=== PATIENT | male | born 1945 | race Caucasian/White ===

== ENCOUNTER 2018-03-17 16:57 | Inpatient (IN) | payer MEDICARE, OTHER ==
[2018-03-17] MEDS: SOD CHLORIDE 0.9% 500 ML IV (17:39)
[2018-03-17 17:45] LABS: ADD MAN DIFF? NO
[2018-03-17 17:46] LABS: ABNORMAL IP MESSAGE 1; BASOPHIL # 0.1 10^3/ul (0.0-0.1); BASOPHILS % 0.6 % (0.0-2.0); EOSINOPHILS # 0.7 10^3/ul (0.0-0.5); EOSINOPHILS % 9.2 % (0.0-7.0); HEMATOCRIT 29.6 % (42.0-52.0); HEMOGLOBIN 9.1 g/dl (14.0-18.0); LYMPHOCYTES # 1.1 10^3/ul (0.8-2.9); LYMPHOCYTES % 13.4 % (15.0-51.0); MEAN CORPUSCULAR HGB CONC 30.7 g/dl (32.0-37.0); MEAN CORPUSCULAR VOLUME 91.1 fl (82.0-101.0); MEAN PLATELET VOLUME 13.5 fl (7.4-10.4); MONOCYTE # 0.6 10^3/ul (0.3-0.9); MONOCYTES % 7.8 % (0.0-11.0); NEUTROPHIL # 5.5 10^3/ul (1.6-7.5); NEUTROPHILS % 68.5 % (39.0-77.0); PLATELET COUNT 223 10^3/UL (140-415); POSITIVE DIFF @See below; RED BLOOD COUNT 3.25 10^6/ul (4.70-6.10); RED CELL DISTRIBUTION WIDTH 16.1 % (11.5-14.5)
[2018-03-17 18:09] LABS: ALANINE AMINOTRANSFERASE 19 IU/L (13-69); ALBUMIN 3.5 g/dl (3.3-4.9); ALBUMIN/GLOBULIN RATIO 0.97; ALKALINE PHOSPHATASE 118 IU/L (42-121); ANION GAP 15 (8-16); ASPARTATE AMINO TRANSFERASE 9 IU/L (15-46); BILIRUBIN,INDIRECT 0.1 mg/dl (0-1.1); BILIRUBIN,TOTAL 0.1 mg/dl (0.2-1.3); BLOOD UREA NITROGEN 32 mg/dl (7-20); CALCIUM 10.4 mg/dl (8.4-10.2); CARBON DIOXIDE 30 mmol/L (21-31); CHLORIDE 116 mmol/L (97-110); CREATININE 0.69 mg/dl (0.61-1.24); GLUCOSE 107 mg/dl (70-220); POTASSIUM 3.2 mmol/L (3.5-5.1); SODIUM 158 mmol/L (135-144); TOTAL PROTEIN 7.1 g/dl (6.1-8.1)
[2018-03-17] MEDS ORDERED: ONDANSETRON 4 MG INJ IV (21:30)
[2018-03-17] MEDS ORDERED: ACETAMINOPHEN 325 MG TAB PO (21:30)
[2018-03-17] MEDS: SOD CHLORIDE 0.9% 1,000 ML IV (22:14)
[2018-03-17] MEDS: POTASSIUM CHLORIDE 30 MEQ in DEXTROSE 5% 1,000 ML IV (22:49)
[2018-03-17] MEDS: CLONIDINE 0.2 MG/24 HR PATCH TRANSDERM (22:59)
[2018-03-17] MEDS: HYDROCODONE/APAP (5/325) TAB GTB (23:02)
[2018-03-18] MEDS: HYDROCODONE/APAP (5/325) TAB GTB ×4 (04:03→21:57)
[2018-03-18 07:20] LABS: ADD MAN DIFF? NO
[2018-03-18 07:25] LABS: WHITE BLOOD COUNT 7.3 10^3/ul (4.8-10.8)
[2018-03-18 07:25] LABS: ABNORMAL IP MESSAGE 1; BASOPHIL # 0.1 10^3/ul (0.0-0.1); EOSINOPHILS # 0.6 10^3/ul (0.0-0.5); EOSINOPHILS % 8.1 % (0.0-7.0); HEMATOCRIT 28.5 % (42.0-52.0); HEMOGLOBIN 8.6 g/dl (14.0-18.0); LYMPHOCYTES # 0.8 10^3/ul (0.8-2.9); LYMPHOCYTES % 11.2 % (15.0-51.0); MEAN CORPUSCULAR HEMOGLOBIN 27.4 pg (29.0-33.0); MEAN CORPUSCULAR HGB CONC 30.2 g/dl (32.0-37.0); MEAN CORPUSCULAR VOLUME 90.8 fl (82.0-101.0); MEAN PLATELET VOLUME 13.9 fl (7.4-10.4); MONOCYTE # 0.6 10^3/ul (0.3-0.9); MONOCYTES % 7.5 % (0.0-11.0); NEUTROPHIL # 5.2 10^3/ul (1.6-7.5); NEUTROPHILS % 71.7 % (39.0-77.0); PLATELET COUNT 212 10^3/UL (140-415); POSITIVE DIFF @See below; RED BLOOD COUNT 3.14 10^6/ul (4.70-6.10); RED CELL DISTRIBUTION WIDTH 16.1 % (11.5-14.5)
[2018-03-18 07:59] LABS: ANION GAP 14 (8-16); BLOOD UREA NITROGEN 24 mg/dl (7-20); CALCIUM 9.9 mg/dl (8.4-10.2); CARBON DIOXIDE 28 mmol/L (21-31); CHLORIDE 117 mmol/L (97-110); CREATININE 0.57 mg/dl (0.61-1.24); GLUCOSE 126 mg/dl (70-220); SODIUM 156 mmol/L (135-144)
[2018-03-18 08:05] LABS: POTASSIUM 2.9 mmol/L (3.5-5.1)
[2018-03-18] MEDS: FERROUS SULFATE 60 MG/ML 5ML CUP GTB ×2 (08:13→21:55)
[2018-03-18] MEDS: AMLODIPINE 10 MG TAB PEG (08:14)
[2018-03-18] MEDS: BISACODYL 10 MG SUPP PR (08:14)
[2018-03-18] MEDS: TACROLIMUS 1 MG CAP PEG ×2 (08:14→21:55)
[2018-03-18] MEDS: POTASSIUM CHLORIDE (SR) 20 MEQ TAB PO (08:14)
[2018-03-18] MEDS: SOD PHOS MONO/DIBAS 250 MG TAB PEG ×2 (08:14→21:55)
[2018-03-18] MEDS: predniSONE 2.5 MG TAB PEG (08:14)
[2018-03-18] MEDS: MAGNESIUM OXIDE 400 MG TAB GTB ×2 (08:14→21:56)
[2018-03-18] MEDS ORDERED: MYCOPHENOLATE MOFETIL GTB (09:00)
[2018-03-18] MEDS ORDERED: LEVETIRACETAM (100 MG/ML PO SYG) PEG (09:00)
[2018-03-18] MEDS: MYCOPHENOLATE 250 MG CAP PO ×2 (09:28→21:55)
[2018-03-18] MEDS: POTASSIUM CHLORIDE 20 MEQ POWDER FOR ORAL SOLN GTB (09:28)
[2018-03-18] MEDS: hydrALAzine 20 MG INJ IV (09:51)
[2018-03-18 10:31] LABS: OSMOLALITY 310 mOsm/kg (280-295)
[2018-03-18] MEDS: LEVETIRACETAM (100 MG/ML) 5ML CUP PEG ×2 (10:59→21:55)
[2018-03-18 12:55] LABS: SODIUM 153 mmol/L (135-144)
[2018-03-18 12:58] LABS: ANION GAP 15 (8-16); BLOOD UREA NITROGEN 19 mg/dl (7-20); CARBON DIOXIDE 26 mmol/L (21-31); CHLORIDE 116 mmol/L (97-110); CREATININE 0.57 mg/dl (0.61-1.24); GLUCOSE 136 mg/dl (70-220); POTASSIUM 3.5 mmol/L (3.5-5.1)
[2018-03-18] MEDS: POTASSIUM CHLORIDE 30 MEQ in DEXTROSE 5% 1,000 ML IV (14:33)
[2018-03-18 15:14] LABS: ADD UMIC YES; UR AMORPHOUS CRYSTAL MANY /HPF (NONE SEEN); UR ASCORBIC ACID 20 mg/dL (NEGATIVE); UR BILIRUBIN (Dip) NEGATIVE (NEGATIVE); UR BLOOD (Dip) NEGATIVE (NEGATIVE); UR BUDDING YEAST MANY /HPF (NONE SEEN); UR CLARITY CLOUDY (CLEAR); UR COLOR YELLOW (YELLOW); UR GLUCOSE (Dip) NEGATIVE (NEGATIVE); UR KETONES (Dip) NEGATIVE (NEGATIVE); UR LEUKOCYTE ESTERASE (Dip) NEGATIVE Leu/ul (NEGATIVE); UR NITRITE (Dip) NEGATIVE (NEGATIVE); UR RBC 1 /HPF (0-5); UR SPECIFIC GRAVITY (Dip) 1.011 (1.003-1.030); UR TOTAL PROTEIN (Dip) NEGATIVE (NEGATIVE); UR UROBILINOGEN (Dip) NEGATIVE (NEGATIVE); UR WBC 0 /HPF (0-5)
[2018-03-18 15:29] LABS: OSMOLALITY,URINE 429 mOsm/kg (250-1200)
[2018-03-18 15:33] LABS: SODIUM,URINE RANDOM 114 mmol/L (30-90)
[2018-03-18 15:33] LABS: CREATININE,URINE RANDOM 24.36 mg/dl (20-370)
[2018-03-18] MEDS ORDERED: LEVETIRACETAM (100 MG/ML) 5ML CUP PEG (21:00)
[2018-03-19] MEDS: POTASSIUM CHLORIDE 30 MEQ in DEXTROSE 5% 1,000 ML IV ×2 (00:32→11:52)
[2018-03-19] MEDS: hydrALAzine 20 MG INJ IV ×3 (00:35→17:23)
[2018-03-19] MEDS: HYDROCODONE/APAP (5/325) TAB GTB ×5 (02:30→21:48)
[2018-03-19] MEDS: ACETAMINOPHEN 650MG/20.3ML CUP GTB ×2 (02:31→17:23)
[2018-03-19 07:44] LABS: ABNORMAL IP MESSAGE 1; HEMATOCRIT 29.4 % (42.0-52.0); HEMOGLOBIN 8.7 g/dl (14.0-18.0); MEAN CORPUSCULAR HEMOGLOBIN 27.4 pg (29.0-33.0); MEAN CORPUSCULAR HGB CONC 29.6 g/dl (32.0-37.0); MEAN CORPUSCULAR VOLUME 92.5 fl (82.0-101.0); POSITIVE DIFF @See below; RED BLOOD COUNT 3.18 10^6/ul (4.70-6.10); RED CELL DISTRIBUTION WIDTH 16.2 % (11.5-14.5)
[2018-03-19 07:44] LABS: WHITE BLOOD COUNT 7.9 10^3/ul (4.8-10.8)
[2018-03-19 07:56] LABS: ADD MAN DIFF? YES; PLATELET COUNT 97 10^3/UL (140-415)
[2018-03-19 08:11] LABS: ANION GAP 12 (8-16); BLOOD UREA NITROGEN 18 mg/dl (7-20); CARBON DIOXIDE 26 mmol/L (21-31); CHLORIDE 116 mmol/L (97-110); CREATININE 0.54 mg/dl (0.61-1.24); GLUCOSE 108 mg/dl (70-220); MAGNESIUM 2.1 mg/dl (1.7-2.5); PHOSPHORUS 2.6 mg/dl (2.5-4.9); POTASSIUM 3.9 mmol/L (3.5-5.1); SODIUM 150 mmol/L (135-144)
[2018-03-19] MEDS: BISACODYL 10 MG SUPP PR (08:28)
[2018-03-19] MEDS: FERROUS SULFATE 60 MG/ML 5ML CUP GTB ×2 (08:28→20:31)
[2018-03-19] MEDS: LEVETIRACETAM (100 MG/ML) 5ML CUP PEG ×2 (08:28→20:31)
[2018-03-19] MEDS: TACROLIMUS 1 MG CAP PEG ×2 (08:28→20:32)
[2018-03-19] MEDS: MYCOPHENOLATE 250 MG CAP PO ×2 (08:28→20:32)
[2018-03-19] MEDS: predniSONE 2.5 MG TAB PEG (08:28)
[2018-03-19] MEDS: AMLODIPINE 10 MG TAB PEG (08:29)
[2018-03-19] MEDS: MAGNESIUM OXIDE 400 MG TAB GTB ×2 (08:29→20:31)
[2018-03-19] MEDS: POTASSIUM CHLORIDE (SR) 20 MEQ TAB PO (08:29)
[2018-03-19] MEDS: SOD PHOS MONO/DIBAS 250 MG TAB PEG ×2 (08:29→20:32)
[2018-03-19 10:11] LABS: ANISOCYTOSIS 1+ (0-0); BAND NEUTROPHILS #M 0.7 10^3/ul (0.0-0.6); BAND NEUTROPHILS % (M) 9 % (0-4); BASOPHIL #M 0.1 10^3/ul (0.0-0.0); BASOPHILS % (M) 2 % (0-2); EOSINOPHILS % (M) 4 % (0-7); GIANT THROMBO% (M) 1 % (0-0); LYMPHOCYTES #M 1.1 10^3/ul (0.8-2.9); LYMPHOCYTES % (M) 14 % (15-51); MICROCYTOSIS 1+ (0-0); MONOCYTE #M 0.8 10^3/ul (0.3-0.9); MONOCYTES % (M) 11 % (0-11); PLATELET ESTIMATE DECREASED; POLYCHROMASIA 1+ (0-0); REACTIVE LYMPHOCYTES #M 0.1 10^3/ul (0.0-0.0); REACTIVE LYMPHOCYTES% (M) 2 % (0-0); SEG NEUT #M 4.6 10^3/ul (1.6-7.5); SEGMENTED NEUTROPHILS (M) % 58 % (39-77); SMUDGE%M 10 % (0-0)
[2018-03-19 15:47] LABS: CREATININE, RANDOM URINE 29 mg/dL (20-370); MICROALBUMIN 1.1 mg/dL; MICROALBUMIN/CREATININE RATIO 38 (<30)
[2018-03-20] MEDS: hydrALAzine 20 MG INJ IV (02:32)
[2018-03-20] MEDS: HYDROCODONE/APAP (5/325) TAB GTB ×4 (03:26→21:18)
[2018-03-20] MEDS: POTASSIUM CHLORIDE 30 MEQ in DEXTROSE 5% 1,000 ML IV ×2 (03:26→20:55)
[2018-03-20 08:58] LABS: ADD MAN DIFF? NO
[2018-03-20] MEDS: BISACODYL 10 MG SUPP PR (09:03)
[2018-03-20] MEDS: LEVETIRACETAM (100 MG/ML) 5ML CUP PEG ×2 (09:03→20:40)
[2018-03-20] MEDS: POTASSIUM CHLORIDE (SR) 20 MEQ TAB PO (09:03)
[2018-03-20] MEDS: FERROUS SULFATE 60 MG/ML 5ML CUP GTB ×2 (09:03→20:39)
[2018-03-20] MEDS: predniSONE 2.5 MG TAB PEG (09:04)
[2018-03-20] MEDS: AMLODIPINE 10 MG TAB PEG (09:05)
[2018-03-20] MEDS: MAGNESIUM OXIDE 400 MG TAB GTB ×2 (09:05→21:18)
[2018-03-20] MEDS: MYCOPHENOLATE 250 MG CAP PO ×2 (09:05→20:42)
[2018-03-20] MEDS: TACROLIMUS 1 MG CAP PEG ×2 (09:05→20:39)
[2018-03-20 09:06] LABS: ABNORMAL IP MESSAGE 1; BASOPHIL # 0.1 10^3/ul (0.0-0.1); BASOPHILS % 0.9 % (0.0-2.0); EOSINOPHILS # 0.6 10^3/ul (0.0-0.5); EOSINOPHILS % 9.2 % (0.0-7.0); HEMATOCRIT 28.8 % (42.0-52.0); HEMOGLOBIN 8.8 g/dl (14.0-18.0); LYMPHOCYTES # 1.1 10^3/ul (0.8-2.9); MEAN CORPUSCULAR HEMOGLOBIN 27.8 pg (29.0-33.0); MEAN CORPUSCULAR HGB CONC 30.6 g/dl (32.0-37.0); MEAN CORPUSCULAR VOLUME 91.1 fl (82.0-101.0); MEAN PLATELET VOLUME 13.1 fl (7.4-10.4); MONOCYTE # 0.5 10^3/ul (0.3-0.9); MONOCYTES % 7.5 % (0.0-11.0); NEUTROPHIL # 4.3 10^3/ul (1.6-7.5); NEUTROPHILS % 64.9 % (39.0-77.0); PLATELET COUNT 232 10^3/UL (140-415); POSITIVE DIFF @See below; RED BLOOD COUNT 3.16 10^6/ul (4.70-6.10); RED CELL DISTRIBUTION WIDTH 15.9 % (11.5-14.5)
[2018-03-20 09:06] LABS: WHITE BLOOD COUNT 6.7 10^3/ul (4.8-10.8)
[2018-03-20 09:27] LABS: ANION GAP 12 (8-16); BLOOD UREA NITROGEN 21 mg/dl (7-20); CALCIUM 10.1 mg/dl (8.4-10.2); CARBON DIOXIDE 26 mmol/L (21-31); CHLORIDE 112 mmol/L (97-110); CREATININE 0.63 mg/dl (0.61-1.24); GLUCOSE 125 mg/dl (70-220); MAGNESIUM 2.2 mg/dl (1.7-2.5); PHOSPHORUS 2.7 mg/dl (2.5-4.9); SODIUM 146 mmol/L (135-144)
[2018-03-20] MEDS: DESMOPRESSIN 0.1 MG TAB PO ×3 (10:59→20:40)
[2018-03-20] MEDS: SOD PHOS MONO/DIBAS 250 MG TAB PEG ×2 (10:59→20:42)
[2018-03-20] MEDS: EPOETIN 10000 UNITS/ML (NON ESRD/NON ONCOLOGY) SC (11:00)
[2018-03-21] MEDS: HYDROCODONE/APAP (5/325) TAB GTB ×4 (03:43→21:03)
[2018-03-21] MEDS: POTASSIUM CHLORIDE 30 MEQ in DEXTROSE 5% 1,000 ML IV (06:42)
[2018-03-21 07:02] LABS: ADD MAN DIFF? NO
[2018-03-21] MEDS: hydrALAzine 20 MG INJ IV ×2 (07:02→16:10)
[2018-03-21 07:08] LABS: WHITE BLOOD COUNT 7.2 10^3/ul (4.8-10.8)
[2018-03-21 07:08] LABS: BASOPHIL # 0.1 10^3/ul (0.0-0.1); BASOPHILS % 0.8 % (0.0-2.0); EOSINOPHILS # 0.6 10^3/ul (0.0-0.5); EOSINOPHILS % 7.9 % (0.0-7.0); HEMATOCRIT 29.6 % (42.0-52.0); LYMPHOCYTES % 13.4 % (15.0-51.0); MEAN CORPUSCULAR HEMOGLOBIN 27.4 pg (29.0-33.0); MEAN CORPUSCULAR HGB CONC 30.4 g/dl (32.0-37.0); MEAN PLATELET VOLUME 12.6 fl (7.4-10.4); MONOCYTE # 0.4 10^3/ul (0.3-0.9); MONOCYTES % 5.5 % (0.0-11.0); NEUTROPHIL # 5.2 10^3/ul (1.6-7.5); PLATELET COUNT 243 10^3/UL (140-415); RED BLOOD COUNT 3.29 10^6/ul (4.70-6.10); RED CELL DISTRIBUTION WIDTH 15.9 % (11.5-14.5)
[2018-03-21 07:23] LABS: ANION GAP 14 (8-16); BLOOD UREA NITROGEN 22 mg/dl (7-20); CALCIUM 10.2 mg/dl (8.4-10.2); CARBON DIOXIDE 27 mmol/L (21-31); CHLORIDE 107 mmol/L (97-110); CREATININE 0.61 mg/dl (0.61-1.24); GLUCOSE 111 mg/dl (70-220); PHOSPHORUS 2.8 mg/dl (2.5-4.9); POTASSIUM 4.2 mmol/L (3.5-5.1); SODIUM 144 mmol/L (135-144)
[2018-03-21 07:26] LABS: IRON 57 ug/dl (35-150)
[2018-03-21 07:35] LABS: % IRON SATURATION 31 % SAT (22-52); TOTAL IRON BINDING CAPACITY 181 ug/dl (241-421)
[2018-03-21] MEDS: DESMOPRESSIN 0.1 MG TAB PO ×3 (08:28→20:44)
[2018-03-21] MEDS: BISACODYL 10 MG SUPP PR (08:28)
[2018-03-21] MEDS: SOD PHOS MONO/DIBAS 250 MG TAB PEG ×2 (08:28→20:45)
[2018-03-21] MEDS: AMLODIPINE 10 MG TAB PEG (08:28)
[2018-03-21] MEDS: MYCOPHENOLATE 250 MG CAP PO ×2 (08:28→20:45)
[2018-03-21] MEDS: predniSONE 2.5 MG TAB PEG (08:29)
[2018-03-21] MEDS: LEVETIRACETAM (100 MG/ML) 5ML CUP PEG ×2 (08:29→20:44)
[2018-03-21] MEDS: FERROUS SULFATE 60 MG/ML 5ML CUP GTB ×2 (08:29→20:44)
[2018-03-21] MEDS: MAGNESIUM OXIDE 400 MG TAB GTB ×2 (08:29→20:44)
[2018-03-21] MEDS: TACROLIMUS 1 MG CAP PEG ×2 (08:29→20:44)
[2018-03-21] MEDS: POTASSIUM CHLORIDE (SR) 20 MEQ TAB PO (08:29)
[2018-03-22] MEDS: HYDROCODONE/APAP (5/325) TAB GTB ×4 (05:06→22:32)
[2018-03-22 06:40] LABS: ADD MAN DIFF? NO
[2018-03-22 06:42] LABS: WHITE BLOOD COUNT 11.6 10^3/ul (4.8-10.8)
[2018-03-22 06:42] LABS: ABNORMAL IP MESSAGE 1; BASOPHIL # 0.1 10^3/ul (0.0-0.1); BASOPHILS % 0.4 % (0.0-2.0); EOSINOPHILS # 0.4 10^3/ul (0.0-0.5); EOSINOPHILS % 3.4 % (0.0-7.0); HEMATOCRIT 25.8 % (42.0-52.0); HEMOGLOBIN 8.1 g/dl (14.0-18.0); LYMPHOCYTES # 0.9 10^3/ul (0.8-2.9); LYMPHOCYTES % 7.7 % (15.0-51.0); MEAN CORPUSCULAR HEMOGLOBIN 28.4 pg (29.0-33.0); MEAN CORPUSCULAR HGB CONC 31.4 g/dl (32.0-37.0); MEAN CORPUSCULAR VOLUME 90.5 fl (82.0-101.0); MEAN PLATELET VOLUME 13.2 fl (7.4-10.4); MONOCYTE # 0.4 10^3/ul (0.3-0.9); MONOCYTES % 3.8 % (0.0-11.0); NEUTROPHIL # 9.7 10^3/ul (1.6-7.5); NEUTROPHILS % 84.3 % (39.0-77.0); PLATELET COUNT 222 10^3/UL (140-415); POSITIVE DIFF @See below; RED BLOOD COUNT 2.85 10^6/ul (4.70-6.10); RED CELL DISTRIBUTION WIDTH 15.8 % (11.5-14.5)
[2018-03-22 07:01] LABS: ANION GAP 13 (8-16); BLOOD UREA NITROGEN 22 mg/dl (7-20); CALCIUM 9.9 mg/dl (8.4-10.2); CARBON DIOXIDE 27 mmol/L (21-31); CHLORIDE 108 mmol/L (97-110); CREATININE 0.67 mg/dl (0.61-1.24); GLUCOSE 112 mg/dl (70-220); POTASSIUM 3.8 mmol/L (3.5-5.1); SODIUM 144 mmol/L (135-144)
[2018-03-22] MEDS: BISACODYL 10 MG SUPP PR (09:00)
[2018-03-22] MEDS: MYCOPHENOLATE 250 MG CAP PO ×2 (09:02→22:31)
[2018-03-22] MEDS: FERROUS SULFATE 60 MG/ML 5ML CUP GTB ×2 (09:02→22:05)
[2018-03-22] MEDS: LEVETIRACETAM (100 MG/ML) 5ML CUP PEG ×2 (09:02→22:07)
[2018-03-22] MEDS: predniSONE 2.5 MG TAB PEG (09:04)
[2018-03-22] MEDS: POTASSIUM CHLORIDE (SR) 20 MEQ TAB PO (09:04)
[2018-03-22] MEDS: DESMOPRESSIN 0.1 MG TAB PO ×3 (09:04→22:06)
[2018-03-22] MEDS: SOD PHOS MONO/DIBAS 250 MG TAB PEG ×2 (09:04→22:06)
[2018-03-22] MEDS: TACROLIMUS 1 MG CAP PEG ×2 (09:05→22:06)
[2018-03-22] MEDS: AMLODIPINE 10 MG TAB PEG (09:05)
[2018-03-22] MEDS: MAGNESIUM OXIDE 400 MG TAB GTB ×2 (09:05→22:06)
[2018-03-23] MEDS: HYDROCODONE/APAP (5/325) TAB GTB ×3 (04:09→16:05)
[2018-03-23 08:53] LABS: ADD MAN DIFF? NO
[2018-03-23 08:55] LABS: WHITE BLOOD COUNT 8.6 10^3/ul (4.8-10.8)
[2018-03-23 08:55] LABS: BASOPHILS % 0.5 % (0.0-2.0); EOSINOPHILS # 0.5 10^3/ul (0.0-0.5); EOSINOPHILS % 5.8 % (0.0-7.0); HEMATOCRIT 27.3 % (42.0-52.0); HEMOGLOBIN 8.6 g/dl (14.0-18.0); LYMPHOCYTES # 1.1 10^3/ul (0.8-2.9); LYMPHOCYTES % 12.9 % (15.0-51.0); MEAN CORPUSCULAR HEMOGLOBIN 28.3 pg (29.0-33.0); MEAN CORPUSCULAR HGB CONC 31.5 g/dl (32.0-37.0); MEAN CORPUSCULAR VOLUME 89.8 fl (82.0-101.0); MEAN PLATELET VOLUME 12.2 fl (7.4-10.4); MONOCYTE # 0.6 10^3/ul (0.3-0.9); MONOCYTES % 6.5 % (0.0-11.0); NEUTROPHIL # 6.4 10^3/ul (1.6-7.5); NEUTROPHILS % 73.7 % (39.0-77.0); PLATELET COUNT 240 10^3/UL (140-415); RED BLOOD COUNT 3.04 10^6/ul (4.70-6.10); RED CELL DISTRIBUTION WIDTH 16.2 % (11.5-14.5)
[2018-03-23] MEDS: FERROUS SULFATE 60 MG/ML 5ML CUP GTB ×2 (09:01→21:52)
[2018-03-23] MEDS: LEVETIRACETAM (100 MG/ML) 5ML CUP PEG ×2 (09:02→21:53)
[2018-03-23] MEDS: TACROLIMUS 1 MG CAP PEG ×2 (09:04→21:56)
[2018-03-23] MEDS: AMLODIPINE 10 MG TAB PEG (09:05)
[2018-03-23] MEDS: BISACODYL 10 MG SUPP PR (09:05)
[2018-03-23] MEDS: SOD PHOS MONO/DIBAS 250 MG TAB PEG ×2 (09:06→21:54)
[2018-03-23] MEDS: predniSONE 2.5 MG TAB PEG (09:06)
[2018-03-23] MEDS: MAGNESIUM OXIDE 400 MG TAB GTB ×2 (09:06→21:54)
[2018-03-23] MEDS: MYCOPHENOLATE 250 MG CAP PO ×2 (09:06→21:56)
[2018-03-23 09:19] LABS: ANION GAP 11 (8-16); BLOOD UREA NITROGEN 23 mg/dl (7-20); CALCIUM 10.2 mg/dl (8.4-10.2); CARBON DIOXIDE 29 mmol/L (21-31); CHLORIDE 107 mmol/L (97-110); CREATININE 0.66 mg/dl (0.61-1.24); GLUCOSE 119 mg/dl (70-220); MAGNESIUM 2.2 mg/dl (1.7-2.5); PHOSPHORUS 2.9 mg/dl (2.5-4.9); POTASSIUM 4.1 mmol/L (3.5-5.1); SODIUM 143 mmol/L (135-144)
[2018-03-23] MEDS: POTASSIUM CHLORIDE 20 MEQ POWDER FOR ORAL SOLN GTB (09:24)
[2018-03-23] MEDS: DESMOPRESSIN 0.1 MG TAB PO ×3 (09:25→21:55)
[2018-03-23] MEDS: POTASSIUM CHLORIDE (SR) 20 MEQ TAB PO (10:36)
[2018-03-24] MEDS: HYDROCODONE/APAP (5/325) TAB GTB (02:44)
[2018-03-24] MEDS: POTASSIUM CHLORIDE 20 MEQ POWDER FOR ORAL SOLN GTB (08:09)
[2018-03-24] MEDS: LEVETIRACETAM (100 MG/ML) 5ML CUP PEG ×2 (08:09→21:23)
[2018-03-24] MEDS: FERROUS SULFATE 60 MG/ML 5ML CUP GTB ×2 (08:09→21:23)
[2018-03-24] MEDS: MYCOPHENOLATE 250 MG CAP PO ×2 (08:09→21:30)
[2018-03-24] MEDS: TACROLIMUS 1 MG CAP PEG ×2 (08:10→21:23)
[2018-03-24] MEDS: SOD PHOS MONO/DIBAS 250 MG TAB PEG ×2 (08:10→21:23)
[2018-03-24] MEDS: LORAZEPAM 0.5 MG TAB GTB (08:10)
[2018-03-24] MEDS: predniSONE 2.5 MG TAB PEG (08:10)
[2018-03-24] MEDS: MAGNESIUM OXIDE 400 MG TAB GTB ×2 (08:10→21:23)
[2018-03-24] MEDS: DESMOPRESSIN 0.1 MG TAB PO ×3 (08:10→21:23)
[2018-03-24] MEDS: AMLODIPINE 10 MG TAB PEG (08:10)
[2018-03-24] MEDS: BISACODYL 10 MG SUPP PR (08:10)
[2018-03-24 09:11] LABS: ADD MAN DIFF? NO
[2018-03-24 09:17] LABS: ABNORMAL IP MESSAGE 1; BASOPHIL # 0.1 10^3/ul (0.0-0.1); BASOPHILS % 0.9 % (0.0-2.0); EOSINOPHILS # 0.5 10^3/ul (0.0-0.5); EOSINOPHILS % 6.7 % (0.0-7.0); HEMOGLOBIN 8.2 g/dl (14.0-18.0); LYMPHOCYTES # 0.8 10^3/ul (0.8-2.9); LYMPHOCYTES % 11.7 % (15.0-51.0); MEAN CORPUSCULAR HEMOGLOBIN 27.6 pg (29.0-33.0); MEAN CORPUSCULAR HGB CONC 30.4 g/dl (32.0-37.0); MEAN CORPUSCULAR VOLUME 90.9 fl (82.0-101.0); MONOCYTE # 0.6 10^3/ul (0.3-0.9); NEUTROPHIL # 5.1 10^3/ul (1.6-7.5); NEUTROPHILS % 72.1 % (39.0-77.0); POSITIVE DIFF @See below; RED BLOOD COUNT 2.97 10^6/ul (4.70-6.10); RED CELL DISTRIBUTION WIDTH 16.2 % (11.5-14.5)
[2018-03-24 09:34] LABS: PLATELET COUNT 115 10^3/UL (140-415)
[2018-03-24 09:38] LABS: ANION GAP 12 (8-16); BLOOD UREA NITROGEN 23 mg/dl (7-20); CALCIUM 10.2 mg/dl (8.4-10.2); CARBON DIOXIDE 28 mmol/L (21-31); CHLORIDE 108 mmol/L (97-110); CREATININE 0.66 mg/dl (0.61-1.24); GLUCOSE 124 mg/dl (70-220); POTASSIUM 3.9 mmol/L (3.5-5.1); SODIUM 144 mmol/L (135-144)
[2018-03-24] MEDS: ACETAMINOPHEN 650MG/20.3ML CUP GTB (12:41)
[2018-03-24] MEDS: hydrALAzine 20 MG INJ IV ×2 (16:04→23:22)
[2018-03-24] MEDS: CLONIDINE 0.2 MG/24 HR PATCH TRANSDERM (22:29)
[2018-03-25] MEDS: ONDANSETRON 4 MG INJ IV (00:12)
[2018-03-25] MEDS: DEXTROSE 5%-0.45% NACL 1,000 ML IV (00:12)
[2018-03-25] MEDS: NITROGLYCERIN 2% 1 GM OINT PKT TD ×2 (03:00→04:10)
[2018-03-25] MEDS ORDERED: NITROGLYCERIN 50 MG/D5W (PMX) 250 ML (04:18)
[2018-03-25] MEDS: NITROGLYCERIN 50 MG/D5W (PMX) 250 ML IV (04:47)
[2018-03-25 05:39] LABS: ADD MAN DIFF? NO
[2018-03-25 05:47] LABS: WHITE BLOOD COUNT 15.3 10^3/ul (4.8-10.8)
[2018-03-25 05:47] LABS: ABNORMAL IP MESSAGE 1; BASOPHIL # 0.1 10^3/ul (0.0-0.1); BASOPHILS % 0.4 % (0.0-2.0); EOSINOPHILS # 0.1 10^3/ul (0.0-0.5); EOSINOPHILS % 0.5 % (0.0-7.0); HEMATOCRIT 30.2 % (42.0-52.0); HEMOGLOBIN 9.4 g/dl (14.0-18.0); LYMPHOCYTES # 0.5 10^3/ul (0.8-2.9); LYMPHOCYTES % 3.3 % (15.0-51.0); MEAN CORPUSCULAR HEMOGLOBIN 27.9 pg (29.0-33.0); MEAN CORPUSCULAR HGB CONC 31.1 g/dl (32.0-37.0); MEAN CORPUSCULAR VOLUME 89.6 fl (82.0-101.0); MEAN PLATELET VOLUME 12.3 fl (7.4-10.4); MONOCYTE # 0.6 10^3/ul (0.3-0.9); MONOCYTES % 3.9 % (0.0-11.0); NEUTROPHILS % 91.6 % (39.0-77.0); PLATELET COUNT 332 10^3/UL (140-415); POSITIVE DIFF @See below; RED BLOOD COUNT 3.37 10^6/ul (4.70-6.10); RED CELL DISTRIBUTION WIDTH 16.1 % (11.5-14.5)
[2018-03-25 06:15] LABS: ANION GAP 15 (8-16); BLOOD UREA NITROGEN 22 mg/dl (7-20); CALCIUM 10.9 mg/dl (8.4-10.2); CARBON DIOXIDE 32 mmol/L (21-31); CHLORIDE 106 mmol/L (97-110); CREATININE 0.68 mg/dl (0.61-1.24); GLUCOSE 130 mg/dl (70-220); POTASSIUM 3.5 mmol/L (3.5-5.1); SODIUM 149 mmol/L (135-144)
[2018-03-25] MEDS: PANTOPRAZOLE 40 MG INJ IV ×2 (08:23→18:43)
[2018-03-25] MEDS: DEXTROSE 5% 1,000 ML IV ×2 (08:30→21:50)
[2018-03-25] MEDS: BISACODYL 10 MG SUPP PR (09:00)
[2018-03-25] MEDS: POTASSIUM CHLORIDE 20 MEQ POWDER FOR ORAL SOLN GTB (09:51)
[2018-03-25] MEDS: FERROUS SULFATE 60 MG/ML 5ML CUP GTB ×2 (09:51→21:55)
[2018-03-25] MEDS: LEVETIRACETAM (100 MG/ML) 5ML CUP PEG ×2 (09:51→21:55)
[2018-03-25] MEDS: SOD PHOS MONO/DIBAS 250 MG TAB PEG ×2 (09:52→21:55)
[2018-03-25] MEDS: predniSONE 2.5 MG TAB PEG (09:52)
[2018-03-25] MEDS: TACROLIMUS 1 MG CAP PEG ×2 (09:52→21:55)
[2018-03-25] MEDS: AMLODIPINE 10 MG TAB PEG (09:52)
[2018-03-25] MEDS: DESMOPRESSIN 0.1 MG TAB PO ×3 (09:53→21:55)
[2018-03-25] MEDS: MYCOPHENOLATE 250 MG CAP PO ×2 (09:58→21:55)
[2018-03-25] MEDS: MAGNESIUM OXIDE 400 MG TAB GTB ×2 (09:58→21:55)
[2018-03-25 12:39] LABS: HEMATOCRIT 25.4 % (42.0-52.0); HEMOGLOBIN 7.9 g/dl (14.0-18.0)
[2018-03-25] MEDS ORDERED: SOD CHLORIDE 0.9% 250 ML IV* (13:32)
[2018-03-25 15:44] LABS: HEMOGLOBIN 8.7 g/dl (14.0-18.0)
[2018-03-25 16:03] LABS: ANION GAP 12 (8-16); BLOOD UREA NITROGEN 24 mg/dl (7-20); CALCIUM 10.6 mg/dl (8.4-10.2); CARBON DIOXIDE 34 mmol/L (21-31); CHLORIDE 104 mmol/L (97-110); CREATININE 0.83 mg/dl (0.61-1.24); GLUCOSE 143 mg/dl (70-220); POTASSIUM 3.6 mmol/L (3.5-5.1); SODIUM 146 mmol/L (135-144)
[2018-03-26 05:19] LABS: ADD MAN DIFF? NO
[2018-03-26 05:25] LABS: BASOPHILS % 0.4 % (0.0-2.0); EOSINOPHILS # 0.3 10^3/ul (0.0-0.5); EOSINOPHILS % 2.8 % (0.0-7.0); HEMATOCRIT 24.5 % (42.0-52.0); HEMOGLOBIN 7.7 g/dl (14.0-18.0); LYMPHOCYTES # 0.8 10^3/ul (0.8-2.9); LYMPHOCYTES % 7.1 % (15.0-51.0); MEAN CORPUSCULAR HEMOGLOBIN 28.2 pg (29.0-33.0); MEAN CORPUSCULAR HGB CONC 31.4 g/dl (32.0-37.0); MEAN CORPUSCULAR VOLUME 89.7 fl (82.0-101.0); MEAN PLATELET VOLUME 12.4 fl (7.4-10.4); MONOCYTE # 0.9 10^3/ul (0.3-0.9); MONOCYTES % 8.3 % (0.0-11.0); NEUTROPHIL # 8.8 10^3/ul (1.6-7.5); NEUTROPHILS % 80.9 % (39.0-77.0); PLATELET COUNT 270 10^3/UL (140-415); RED BLOOD COUNT 2.73 10^6/ul (4.70-6.10); RED CELL DISTRIBUTION WIDTH 15.9 % (11.5-14.5)
[2018-03-26 05:25] LABS: WHITE BLOOD COUNT 10.9 10^3/ul (4.8-10.8)
[2018-03-26] MEDS: PANTOPRAZOLE 40 MG INJ IV ×2 (05:43→17:30)
[2018-03-26 05:44] LABS: ANION GAP 11 (8-16); BLOOD UREA NITROGEN 20 mg/dl (7-20); CALCIUM 10.1 mg/dl (8.4-10.2); CARBON DIOXIDE 32 mmol/L (21-31); CHLORIDE 103 mmol/L (97-110); CREATININE 0.71 mg/dl (0.61-1.24); GLUCOSE 121 mg/dl (70-220); PHOSPHORUS 2.5 mg/dl (2.5-4.9); POTASSIUM 3.1 mmol/L (3.5-5.1); SODIUM 143 mmol/L (135-144)
[2018-03-26] MEDS ORDERED: DOCUSATE SODIUM 100 MG CAP PO (09:00)
[2018-03-26] MEDS ORDERED: POLYETHYLENE GLYCOL 17 GM PACKET PO (09:00)
[2018-03-26] MEDS: FERROUS SULFATE 60 MG/ML 5ML CUP GTB ×2 (09:04→20:14)
[2018-03-26] MEDS: SOD PHOS MONO/DIBAS 250 MG TAB PEG ×2 (09:11→20:14)
[2018-03-26] MEDS: TACROLIMUS 1 MG CAP PEG ×2 (09:11→20:15)
[2018-03-26] MEDS: AMLODIPINE 10 MG TAB PEG (09:11)
[2018-03-26] MEDS: predniSONE 2.5 MG TAB PEG (09:11)
[2018-03-26] MEDS: MAGNESIUM OXIDE 400 MG TAB GTB ×2 (09:11→20:15)
[2018-03-26] MEDS: LEVETIRACETAM (100 MG/ML) 5ML CUP PEG ×2 (09:11→20:14)
[2018-03-26] MEDS: POTASSIUM CHLORIDE 20 MEQ POWDER FOR ORAL SOLN GTB (09:11)
[2018-03-26] MEDS: DESMOPRESSIN 0.1 MG TAB PO ×3 (09:12→20:14)
[2018-03-26] MEDS: hydrALAzine 20 MG INJ IV ×2 (09:12→21:07)
[2018-03-26] MEDS: BISACODYL 10 MG SUPP PR (09:12)
[2018-03-26] MEDS: MYCOPHENOLATE 250 MG CAP PO ×2 (09:12→20:15)
[2018-03-26 10:18] LABS: IMMEDIATE SPIN CROSSMATCH 1 2
[2018-03-26] MEDS: DEXTROSE 5% 1,000 ML IV ×2 (11:10→20:17)
[2018-03-26] MEDS: morphine 2 MG INJ IV ×2 (12:12→22:13)
[2018-03-26] MEDS: CLONIDINE 0.3 MG/24 HR PATCH TRANSDERM (13:22)
[2018-03-26] MEDS: HYDROCODONE/APAP (5/325) TAB GTB (13:24)
[2018-03-26] MEDS: POTASSIUM CHLORIDE 100 ML IVPB (13:24)
[2018-03-26] MEDS ORDERED: FENTAnyl 50 MCG/ML VIAL (17:29)
[2018-03-26] MEDS ORDERED: MIDAZOLAM 1 MG/ML 2 ML INJ (17:29)
[2018-03-27 05:46] LABS: ADD MAN DIFF? NO
[2018-03-27 05:50] LABS: WHITE BLOOD COUNT 8.2 10^3/ul (4.8-10.8)
[2018-03-27 05:50] LABS: BASOPHIL # 0.1 10^3/ul (0.0-0.1); BASOPHILS % 0.9 % (0.0-2.0); EOSINOPHILS # 0.5 10^3/ul (0.0-0.5); EOSINOPHILS % 5.6 % (0.0-7.0); HEMATOCRIT 29.4 % (42.0-52.0); HEMOGLOBIN 9.3 g/dl (14.0-18.0); LYMPHOCYTES # 0.8 10^3/ul (0.8-2.9); LYMPHOCYTES % 9.9 % (15.0-51.0); MEAN CORPUSCULAR HEMOGLOBIN 28.2 pg (29.0-33.0); MEAN CORPUSCULAR HGB CONC 31.6 g/dl (32.0-37.0); MEAN CORPUSCULAR VOLUME 89.1 fl (82.0-101.0); MONOCYTE # 0.9 10^3/ul (0.3-0.9); NEUTROPHIL # 5.9 10^3/ul (1.6-7.5); NEUTROPHILS % 72.2 % (39.0-77.0); PLATELET COUNT 264 10^3/UL (140-415); RED CELL DISTRIBUTION WIDTH 15.5 % (11.5-14.5)
[2018-03-27] MEDS: PANTOPRAZOLE 40 MG INJ IV ×2 (05:55→17:15)
[2018-03-27 06:24] LABS: ANION GAP 10 (8-16); BLOOD UREA NITROGEN 14 mg/dl (7-20); CARBON DIOXIDE 30 mmol/L (21-31); CHLORIDE 103 mmol/L (97-110); CREATININE 0.65 mg/dl (0.61-1.24); GLUCOSE 112 mg/dl (70-220); MAGNESIUM 1.9 mg/dl (1.7-2.5); PHOSPHORUS 2.6 mg/dl (2.5-4.9); POTASSIUM 3.2 mmol/L (3.5-5.1); SODIUM 140 mmol/L (135-144)
[2018-03-27] MEDS: FERROUS SULFATE 60 MG/ML 5ML CUP GTB ×2 (08:09→21:13)
[2018-03-27] MEDS: POTASSIUM CHLORIDE 20 MEQ POWDER FOR ORAL SOLN GTB (08:09)
[2018-03-27] MEDS: TACROLIMUS 1 MG CAP PEG ×2 (08:10→21:12)
[2018-03-27] MEDS: DESMOPRESSIN 0.1 MG TAB PO ×3 (08:10→21:13)
[2018-03-27] MEDS: SOD PHOS MONO/DIBAS 250 MG TAB PEG ×2 (08:10→21:13)
[2018-03-27] MEDS: predniSONE 2.5 MG TAB PEG (08:10)
[2018-03-27] MEDS: MYCOPHENOLATE 250 MG CAP PO ×2 (08:10→21:13)
[2018-03-27] MEDS: LEVETIRACETAM (100 MG/ML) 5ML CUP PEG ×2 (08:10→21:13)
[2018-03-27] MEDS: AMLODIPINE 10 MG TAB PEG (08:10)
[2018-03-27] MEDS: MAGNESIUM OXIDE 400 MG TAB GTB ×2 (08:11→21:12)
[2018-03-27] MEDS: BISACODYL 10 MG SUPP PR (08:11)
[2018-03-27] MEDS: morphine 2 MG INJ IV (08:20)
[2018-03-27] MEDS: DEXTROSE 5% 1,000 ML IV ×2 (09:15→13:46)
[2018-03-27] MEDS: POTASSIUM CHLORIDE 50 ML IVPB ×3 (09:15→10:56)
[2018-03-27] MEDS: LORAZEPAM 0.5 MG TAB GTB (10:14)
[2018-03-27] MEDS: HYDROCODONE/APAP (5/325) TAB GTB (10:15)
[2018-03-27] MEDS: hydrALAzine 20 MG INJ IV (12:08)
[2018-03-27] MEDS: BENAZEPRIL 20 MG TAB PO ×2 (14:04→21:13)
[2018-03-28] MEDS: hydrALAzine 20 MG INJ IV ×3 (01:09→23:28)
[2018-03-28] MEDS: DEXTROSE 5% 1,000 ML IV ×2 (03:10→16:30)
[2018-03-28 05:12] LABS: ADD MAN DIFF? NO
[2018-03-28 05:18] LABS: WHITE BLOOD COUNT 7.6 10^3/ul (4.8-10.8)
[2018-03-28 05:18] LABS: BASOPHIL # 0.1 10^3/ul (0.0-0.1); BASOPHILS % 0.7 % (0.0-2.0); EOSINOPHILS # 0.5 10^3/ul (0.0-0.5); EOSINOPHILS % 6.3 % (0.0-7.0); HEMATOCRIT 30.3 % (42.0-52.0); HEMOGLOBIN 9.6 g/dl (14.0-18.0); LYMPHOCYTES # 0.7 10^3/ul (0.8-2.9); LYMPHOCYTES % 9.7 % (15.0-51.0); MEAN CORPUSCULAR HEMOGLOBIN 28.3 pg (29.0-33.0); MEAN CORPUSCULAR HGB CONC 31.7 g/dl (32.0-37.0); MEAN CORPUSCULAR VOLUME 89.4 fl (82.0-101.0); MEAN PLATELET VOLUME 12.3 fl (7.4-10.4); MONOCYTE # 0.8 10^3/ul (0.3-0.9); MONOCYTES % 10.3 % (0.0-11.0); NEUTROPHIL # 5.5 10^3/ul (1.6-7.5); NEUTROPHILS % 72.6 % (39.0-77.0); PLATELET COUNT 292 10^3/UL (140-415); RED BLOOD COUNT 3.39 10^6/ul (4.70-6.10); RED CELL DISTRIBUTION WIDTH 15.4 % (11.5-14.5)
[2018-03-28 05:40] LABS: ANION GAP 10 (8-16); BLOOD UREA NITROGEN 12 mg/dl (7-20); CARBON DIOXIDE 28 mmol/L (21-31); CHLORIDE 102 mmol/L (97-110); CREATININE 0.67 mg/dl (0.61-1.24); GLUCOSE 105 mg/dl (70-220); POTASSIUM 3.3 mmol/L (3.5-5.1); SODIUM 137 mmol/L (135-144)
[2018-03-28] MEDS: PANTOPRAZOLE 40 MG INJ IV ×2 (06:29→18:12)
[2018-03-28] MEDS: LEVETIRACETAM (100 MG/ML) 5ML CUP PEG ×2 (09:23→20:51)
[2018-03-28] MEDS: FERROUS SULFATE 60 MG/ML 5ML CUP GTB ×2 (09:23→20:50)
[2018-03-28] MEDS: MYCOPHENOLATE 250 MG CAP PO ×2 (09:23→20:52)
[2018-03-28] MEDS: POTASSIUM CHLORIDE 20 MEQ POWDER FOR ORAL SOLN GTB (09:23)
[2018-03-28] MEDS: BISACODYL 10 MG SUPP PR (09:24)
[2018-03-28] MEDS: TACROLIMUS 1 MG CAP PEG ×2 (09:24→20:58)
[2018-03-28] MEDS: DESMOPRESSIN 0.1 MG TAB PO ×3 (09:28→20:51)
[2018-03-28] MEDS: MAGNESIUM OXIDE 400 MG TAB GTB ×2 (09:28→20:50)
[2018-03-28] MEDS: SOD PHOS MONO/DIBAS 250 MG TAB PEG ×2 (09:28→20:58)
[2018-03-28] MEDS: predniSONE 2.5 MG TAB PEG (09:28)
[2018-03-28] MEDS: POTASSIUM CHLORIDE 100 ML IVPB (09:28)
[2018-03-28] MEDS: BENAZEPRIL 20 MG TAB PO ×2 (09:33→20:51)
[2018-03-28] MEDS: AMLODIPINE 10 MG TAB PEG (09:33)
[2018-03-29] MEDS: PANTOPRAZOLE 40 MG INJ IV ×2 (05:14→17:39)
[2018-03-29 05:36] LABS: ADD MAN DIFF? NO
[2018-03-29] MEDS: DEXTROSE 5% 1,000 ML IV ×2 (05:50→17:00)
[2018-03-29 05:54] LABS: BASOPHILS % 0.6 % (0.0-2.0); EOSINOPHILS # 0.3 10^3/ul (0.0-0.5); EOSINOPHILS % 4.4 % (0.0-7.0); HEMATOCRIT 31.6 % (42.0-52.0); HEMOGLOBIN 10.2 g/dl (14.0-18.0); LYMPHOCYTES # 0.9 10^3/ul (0.8-2.9); LYMPHOCYTES % 13.1 % (15.0-51.0); MEAN CORPUSCULAR HEMOGLOBIN 28.3 pg (29.0-33.0); MEAN CORPUSCULAR HGB CONC 32.3 g/dl (32.0-37.0); MEAN CORPUSCULAR VOLUME 87.5 fl (82.0-101.0); MEAN PLATELET VOLUME 12.2 fl (7.4-10.4); MONOCYTE # 0.8 10^3/ul (0.3-0.9); MONOCYTES % 12.5 % (0.0-11.0); NEUTROPHIL # 4.5 10^3/ul (1.6-7.5); NEUTROPHILS % 68.8 % (39.0-77.0); PLATELET COUNT 335 10^3/UL (140-415); RED BLOOD COUNT 3.61 10^6/ul (4.70-6.10); RED CELL DISTRIBUTION WIDTH 15.2 % (11.5-14.5)
[2018-03-29 05:54] LABS: WHITE BLOOD COUNT 6.6 10^3/ul (4.8-10.8)
[2018-03-29 06:01] LABS: ANION GAP 6 (8-16); BLOOD UREA NITROGEN 11 mg/dl (7-20); CALCIUM 10.2 mg/dl (8.4-10.2); CARBON DIOXIDE 30 mmol/L (21-31); CHLORIDE 101 mmol/L (97-110); CREATININE 0.63 mg/dl (0.61-1.24); GLUCOSE 117 mg/dl (70-220); POTASSIUM 3.2 mmol/L (3.5-5.1); SODIUM 134 mmol/L (135-144)
[2018-03-29] MEDS: POTASSIUM CHLORIDE 20 MEQ POWDER FOR ORAL SOLN GTB ×2 (09:34→14:42)
[2018-03-29] MEDS: FERROUS SULFATE 60 MG/ML 5ML CUP GTB ×2 (09:34→21:32)
[2018-03-29] MEDS: LEVETIRACETAM (100 MG/ML) 5ML CUP PEG ×2 (09:35→21:32)
[2018-03-29] MEDS: SOD PHOS MONO/DIBAS 250 MG TAB PEG ×2 (09:35→21:32)
[2018-03-29] MEDS: BENAZEPRIL 20 MG TAB PO ×2 (09:36→21:34)
[2018-03-29] MEDS: predniSONE 2.5 MG TAB PEG (09:36)
[2018-03-29] MEDS: AMLODIPINE 10 MG TAB PEG (09:37)
[2018-03-29] MEDS: DESMOPRESSIN 0.1 MG TAB PO ×3 (09:37→21:33)
[2018-03-29] MEDS: MAGNESIUM OXIDE 400 MG TAB GTB ×2 (09:37→21:32)
[2018-03-29] MEDS: TACROLIMUS 1 MG CAP PEG ×2 (09:38→21:43)
[2018-03-29] MEDS: MYCOPHENOLATE 250 MG CAP PO ×2 (09:38→21:33)
[2018-03-29] MEDS: BISACODYL 10 MG SUPP PR (09:38)
[2018-03-29] MEDS: FUROSEMIDE 20 MG INJ IV (11:26)
[2018-03-29] MEDS: METOCLOPRAMIDE 10 MG INJ IV (18:34)
[2018-03-29] MEDS ORDERED: morphine LIQ (10 MG/5 ML) CUP GTB (22:30)
[2018-03-30] MEDS: PANTOPRAZOLE 40 MG INJ IV ×2 (05:47→17:32)
[2018-03-30 05:48] LABS: ADD MAN DIFF? NO
[2018-03-30] MEDS: METOCLOPRAMIDE 10 MG INJ IV (05:48)
[2018-03-30 05:57] LABS: BASOPHIL # 0.1 10^3/ul (0.0-0.1); BASOPHILS % 0.7 % (0.0-2.0); EOSINOPHILS # 0.4 10^3/ul (0.0-0.5); EOSINOPHILS % 4.6 % (0.0-7.0); HEMATOCRIT 29.3 % (42.0-52.0); HEMOGLOBIN 9.2 g/dl (14.0-18.0); LYMPHOCYTES # 0.7 10^3/ul (0.8-2.9); LYMPHOCYTES % 9.7 % (15.0-51.0); MEAN CORPUSCULAR HEMOGLOBIN 28.1 pg (29.0-33.0); MEAN CORPUSCULAR HGB CONC 31.4 g/dl (32.0-37.0); MEAN CORPUSCULAR VOLUME 89.6 fl (82.0-101.0); MEAN PLATELET VOLUME 11.8 fl (7.4-10.4); MONOCYTE # 0.7 10^3/ul (0.3-0.9); MONOCYTES % 9.7 % (0.0-11.0); NEUTROPHIL # 5.7 10^3/ul (1.6-7.5); NEUTROPHILS % 74.6 % (39.0-77.0); PLATELET COUNT 313 10^3/UL (140-415); RED BLOOD COUNT 3.27 10^6/ul (4.70-6.10); RED CELL DISTRIBUTION WIDTH 15.5 % (11.5-14.5)
[2018-03-30 05:57] LABS: WHITE BLOOD COUNT 7.6 10^3/ul (4.8-10.8)
[2018-03-30 06:17] LABS: ANION GAP 9 (8-16); BLOOD UREA NITROGEN 12 mg/dl (7-20); CARBON DIOXIDE 30 mmol/L (21-31); CHLORIDE 102 mmol/L (97-110); CREATININE 0.72 mg/dl (0.61-1.24); GLUCOSE 101 mg/dl (70-220); MAGNESIUM 1.7 mg/dl (1.7-2.5); PHOSPHORUS 3.1 mg/dl (2.5-4.9); POTASSIUM 3.2 mmol/L (3.5-5.1); SODIUM 138 mmol/L (135-144)
[2018-03-30] MEDS: SOD PHOS MONO/DIBAS 250 MG TAB PEG ×2 (08:21→21:29)
[2018-03-30] MEDS: POTASSIUM CHLORIDE 20 MEQ POWDER FOR ORAL SOLN GTB ×2 (08:21→15:56)
[2018-03-30] MEDS: AMLODIPINE 10 MG TAB PEG (08:22)
[2018-03-30] MEDS: MAGNESIUM OXIDE 400 MG TAB GTB ×2 (08:22→21:29)
[2018-03-30] MEDS: FERROUS SULFATE 60 MG/ML 5ML CUP GTB ×2 (08:23→21:28)
[2018-03-30] MEDS: predniSONE 2.5 MG TAB PEG (08:23)
[2018-03-30] MEDS: BENAZEPRIL 20 MG TAB PO ×2 (08:23→21:29)
[2018-03-30] MEDS: DESMOPRESSIN 0.1 MG TAB PO ×3 (08:24→21:28)
[2018-03-30] MEDS: LEVETIRACETAM (100 MG/ML) 5ML CUP PEG ×2 (08:24→21:28)
[2018-03-30] MEDS: MYCOPHENOLATE 250 MG CAP PO ×2 (08:24→21:28)
[2018-03-30] MEDS: BISACODYL 10 MG SUPP PR (08:25)
[2018-03-30] MEDS: TACROLIMUS 1 MG CAP PEG ×2 (08:25→21:28)
[2018-03-30] MEDS: FUROSEMIDE 20 MG INJ IV (13:20)
[2018-03-31] MEDS: METOCLOPRAMIDE 10 MG INJ IV (00:32)
[2018-03-31] MEDS: PANTOPRAZOLE 40 MG INJ IV ×2 (05:52→17:29)
[2018-03-31 06:13] LABS: ADD MAN DIFF? NO
[2018-03-31 06:17] LABS: WHITE BLOOD COUNT 10.1 10^3/ul (4.8-10.8)
[2018-03-31 06:17] LABS: BASOPHILS % 0.4 % (0.0-2.0); EOSINOPHILS # 0.4 10^3/ul (0.0-0.5); EOSINOPHILS % 3.8 % (0.0-7.0); HEMATOCRIT 30.8 % (42.0-52.0); HEMOGLOBIN 9.7 g/dl (14.0-18.0); LYMPHOCYTES # 0.7 10^3/ul (0.8-2.9); MEAN CORPUSCULAR HEMOGLOBIN 28.3 pg (29.0-33.0); MEAN CORPUSCULAR HGB CONC 31.5 g/dl (32.0-37.0); MEAN CORPUSCULAR VOLUME 89.8 fl (82.0-101.0); MEAN PLATELET VOLUME 11.7 fl (7.4-10.4); MONOCYTES % 9.4 % (0.0-11.0); NEUTROPHIL # 7.9 10^3/ul (1.6-7.5); NEUTROPHILS % 78.6 % (39.0-77.0); PLATELET COUNT 314 10^3/UL (140-415); RED BLOOD COUNT 3.43 10^6/ul (4.70-6.10); RED CELL DISTRIBUTION WIDTH 15.4 % (11.5-14.5)
[2018-03-31 06:40] LABS: ANION GAP 9 (8-16); BLOOD UREA NITROGEN 15 mg/dl (7-20); CALCIUM 9.7 mg/dl (8.4-10.2); CARBON DIOXIDE 31 mmol/L (21-31); CHLORIDE 101 mmol/L (97-110); CREATININE 0.78 mg/dl (0.61-1.24); GLUCOSE 155 mg/dl (70-220); POTASSIUM 3.3 mmol/L (3.5-5.1); SODIUM 138 mmol/L (135-144)
[2018-03-31] MEDS: MAGNESIUM OXIDE 400 MG TAB GTB ×2 (08:27→21:20)
[2018-03-31] MEDS: POTASSIUM CHLORIDE 20 MEQ POWDER FOR ORAL SOLN GTB ×2 (08:27)
[2018-03-31] MEDS: TACROLIMUS 1 MG CAP PEG ×2 (08:28→21:21)
[2018-03-31] MEDS: FERROUS SULFATE 60 MG/ML 5ML CUP GTB ×2 (08:28→21:20)
[2018-03-31] MEDS: DESMOPRESSIN 0.1 MG TAB PO ×3 (08:28→21:20)
[2018-03-31] MEDS: AMLODIPINE 10 MG TAB PEG (08:28)
[2018-03-31] MEDS: SOD PHOS MONO/DIBAS 250 MG TAB PEG ×2 (08:28→21:20)
[2018-03-31] MEDS: BENAZEPRIL 20 MG TAB PO ×2 (08:29→21:21)
[2018-03-31] MEDS: LEVETIRACETAM (100 MG/ML) 5ML CUP PEG ×2 (08:29→21:20)
[2018-03-31] MEDS: MYCOPHENOLATE 250 MG CAP PO ×2 (08:29→21:21)
[2018-03-31] MEDS: predniSONE 2.5 MG TAB PEG (08:34)
[2018-03-31] MEDS: BISACODYL 10 MG SUPP PR (08:34)
[2018-04-01] MEDS: METOCLOPRAMIDE 10 MG INJ IV (04:08)
[2018-04-01 05:47] LABS: ADD MAN DIFF? NO
[2018-04-01 05:51] LABS: BASOPHILS % 0.3 % (0.0-2.0); EOSINOPHILS # 0.5 10^3/ul (0.0-0.5); EOSINOPHILS % 4.4 % (0.0-7.0); HEMOGLOBIN 9.4 g/dl (14.0-18.0); LYMPHOCYTES # 0.9 10^3/ul (0.8-2.9); LYMPHOCYTES % 8.3 % (15.0-51.0); MEAN CORPUSCULAR HEMOGLOBIN 28.1 pg (29.0-33.0); MEAN CORPUSCULAR HGB CONC 31.3 g/dl (32.0-37.0); MEAN CORPUSCULAR VOLUME 89.8 fl (82.0-101.0); MEAN PLATELET VOLUME 12.1 fl (7.4-10.4); MONOCYTE # 0.9 10^3/ul (0.3-0.9); MONOCYTES % 8.9 % (0.0-11.0); NEUTROPHIL # 8.2 10^3/ul (1.6-7.5); NEUTROPHILS % 77.3 % (39.0-77.0); PLATELET COUNT 332 10^3/UL (140-415); RED BLOOD COUNT 3.34 10^6/ul (4.70-6.10); RED CELL DISTRIBUTION WIDTH 15.3 % (11.5-14.5)
[2018-04-01 05:51] LABS: WHITE BLOOD COUNT 10.6 10^3/ul (4.8-10.8)
[2018-04-01] MEDS: PANTOPRAZOLE 40 MG INJ IV ×2 (06:03→17:21)
[2018-04-01 06:16] LABS: ANION GAP 9 (8-16); BLOOD UREA NITROGEN 18 mg/dl (7-20); CARBON DIOXIDE 30 mmol/L (21-31); CHLORIDE 102 mmol/L (97-110); GLUCOSE 131 mg/dl (70-220); MAGNESIUM 1.6 mg/dl (1.7-2.5); PHOSPHORUS 2.8 mg/dl (2.5-4.9); POTASSIUM 3.7 mmol/L (3.5-5.1); SODIUM 137 mmol/L (135-144)
[2018-04-01] MEDS: LEVETIRACETAM (100 MG/ML) 5ML CUP PEG ×2 (08:40→21:37)
[2018-04-01] MEDS: FERROUS SULFATE 60 MG/ML 5ML CUP GTB ×2 (08:40→21:37)
[2018-04-01] MEDS: ACETAMINOPHEN 650MG/20.3ML CUP GTB (08:40)
[2018-04-01] MEDS: BENAZEPRIL 20 MG TAB PO ×2 (08:41→21:38)
[2018-04-01] MEDS: SOD PHOS MONO/DIBAS 250 MG TAB PEG ×2 (08:41→21:37)
[2018-04-01] MEDS: FUROSEMIDE 20 MG INJ IV (08:41)
[2018-04-01] MEDS: POTASSIUM CHLORIDE 20 MEQ POWDER FOR ORAL SOLN GTB (08:42)
[2018-04-01] MEDS: DESMOPRESSIN 0.1 MG TAB PO ×3 (08:42→21:39)
[2018-04-01] MEDS: AMLODIPINE 10 MG TAB PEG (08:42)
[2018-04-01] MEDS: MYCOPHENOLATE 250 MG CAP PO ×2 (08:43→21:37)
[2018-04-01] MEDS: MAGNESIUM OXIDE 400 MG TAB GTB ×2 (08:43→21:39)
[2018-04-01] MEDS: TACROLIMUS 1 MG CAP PEG ×2 (08:43→21:37)
[2018-04-01] MEDS: predniSONE 2.5 MG TAB PEG (08:43)
[2018-04-01] MEDS: MAGNESIUM SULFATE 2 GM/50 ML 50 ML IVPB (08:44)
[2018-04-01] MEDS: BISACODYL 10 MG SUPP PR (09:00)
[2018-04-02 16:55] LABS: TROPONIN-I < 0.012 ng/ml (0.000-0.120)
== END 2018-04-02 00:23 | disposition other institution (70) | DRG 640 ==
LOC: TEL 21:09 → ICU 03-25 03:32 → E/R 16:57
PROC: 5A1955Z Respiratory Ventilation, Greater than 96 Consecutive Hours (ICD-10-PCS; principal; 2018-03-26 16:30)
PROC: 30233N1 Transfusion of Nonautologous Red Blood Cells into Peripheral Vein, Percutaneous Approach (ICD-10-PCS; 2018-03-26 16:30)
PROC: 0DJ08ZZ Inspection of Upper Intestinal Tract, Via Natural or Artificial Opening Endoscopic (ICD-10-PCS; 2018-03-26 16:30)
DX: E87.0 Hyperosmolality and hypernatremia (principal); G92 Toxic encephalopathy; J96.90 Respiratory failure, unspecified, unspecified whether with hypoxia or hypercapnia; N18.6 End stage renal disease; I50.43 Acute on chronic combined systolic (congestive) and diastolic (congestive) heart failure; E23.2 Diabetes insipidus; Z94.0 Kidney transplant status; I13.0 Hypertensive heart and chronic kidney disease with heart failure and stage 1 through stage 4 chronic kidney disease, or unspecified chronic kidney disease; Z99.11 Dependence on respirator [ventilator] status; K22.10 Ulcer of esophagus without bleeding; E87.6 Hypokalemia; D64.9 Anemia, unspecified; R13.10 Dysphagia, unspecified; G40.909 Epilepsy, unspecified, not intractable, without status epilepticus; M89.8X8 Other specified disorders of bone, other site; N18.9 Chronic kidney disease, unspecified; E11.22 Type 2 diabetes mellitus with diabetic chronic kidney disease; Z93.1 Gastrostomy status; K29.70 Gastritis, unspecified, without bleeding; K20.9 Esophagitis, unspecified
CPT/HCPCS: 36415; 36430; 71045; 74018; 80048; 80053; 81001; 81003; 82043; 82962; 83540; 83735; 83930; 83935; 84100; 84155; 84300; 84484; 85014; 85018; 85025; 86850; 86900; 86901; 86920; 87081; 93306; 93922; 94002; 94003; 96374; 99285-25

== ENCOUNTER 2018-08-12 20:28 | Inpatient (IN) | payer MEDICARE, OTHER ==
[2018-08-12 21:04] LABS: ADD MAN DIFF? NO
[2018-08-12 21:08] LABS: WHITE BLOOD COUNT 5.8 10^3/ul (4.8-10.8)
[2018-08-12 21:08] LABS: BASOPHILS % 0.5 % (0.0-2.0); EOSINOPHILS # 0.2 10^3/ul (0.0-0.5); EOSINOPHILS % 2.8 % (0.0-7.0); HEMATOCRIT 26.7 % (42.0-52.0); LYMPHOCYTES # 0.8 10^3/ul (0.8-2.9); LYMPHOCYTES % 13.3 % (15.0-51.0); MEAN CORPUSCULAR HEMOGLOBIN 27.7 pg (29.0-33.0); MEAN CORPUSCULAR VOLUME 92.4 fl (82.0-101.0); MEAN PLATELET VOLUME 12.5 fl (7.4-10.4); MONOCYTE # 0.4 10^3/ul (0.3-0.9); MONOCYTES % 7.5 % (0.0-11.0); NEUTROPHIL # 4.4 10^3/ul (1.6-7.5); NEUTROPHILS % 75.4 % (39.0-77.0); PLATELET COUNT 194 10^3/UL (140-415); RED BLOOD COUNT 2.89 10^6/ul (4.70-6.10); RED CELL DISTRIBUTION WIDTH 15.4 % (11.5-14.5)
[2018-08-12] MEDS: SOD CHLORIDE 0.9% 500 ML IV (21:08)
[2018-08-12 21:25] LABS: ALANINE AMINOTRANSFERASE 25 IU/L (13-69); ALBUMIN 2.8 g/dl (3.3-4.9); ALBUMIN/GLOBULIN RATIO 0.93; ALKALINE PHOSPHATASE 94 IU/L (42-121); ANION GAP 7 (5-13); ASPARTATE AMINO TRANSFERASE 15 IU/L (15-46); BLOOD UREA NITROGEN 26 mg/dl (7-20); CALCIUM 9.7 mg/dl (8.4-10.2); CARBON DIOXIDE 26 mmol/L (21-31); CHLORIDE 109 mmol/L (97-110); CREATININE 0.66 mg/dl (0.61-1.24); GLUCOSE 106 mg/dl (70-220); LIPASE 49 U/L (23-300); POTASSIUM 4.2 mmol/L (3.5-5.1); SODIUM 142 mmol/L (135-144); TOTAL PROTEIN 5.8 g/dl (6.1-8.1)
[2018-08-12 21:26] LABS: PROTIME 14.4 Sec (11.9-14.9); PT RATIO 1.1
[2018-08-12 21:27] LABS: PARTIAL THROMBOPLASTIN TIME 30.9 Sec (23.0-35.0)
[2018-08-12] MEDS: PANTOPRAZOLE 40 MG INJ IV (21:30)
[2018-08-12 21:36] LABS: TROPONIN-I < 0.012 ng/ml (0.000-0.120)
[2018-08-12 21:55] LABS: B-TYPE NATRIURETIC PEPTIDE 1470 PG/ML (0-125)
[2018-08-12] MEDS: CALCIUM GLUCONATE 10% 1 GM in DEXTROSE 5% 100 ML IVPB (22:12)
[2018-08-12] MEDS: OCTREOTIDE 50 MCG in SOD CHLORIDE 0.9% 25 ML IVPB (22:12)
[2018-08-12 22:21] LABS: IMMEDIATE SPIN CROSSMATCH 1 2
[2018-08-12] MEDS ORDERED: ACETAMINOPHEN 325 MG TAB PO (23:00)
[2018-08-12] MEDS ORDERED: ONDANSETRON 4 MG INJ IV (23:00)
[2018-08-12] MEDS ORDERED: NACL 0.9% 3 ML SYG IV (23:00)
[2018-08-12] MEDS ORDERED: morphine 2 MG INJ IV (23:00)
[2018-08-12] MEDS: ENALAPRILAT 1.25 MG INJ IV (23:04)
[2018-08-12] MEDS: NITROGLYCERIN (SL) 0.4 MG TAB SL (23:04)
[2018-08-12] MEDS: FUROSEMIDE 40 MG INJ IV (23:05)
[2018-08-13] MEDS: NITROGLYCERIN (SL) 0.4 MG TAB SL (02:12)
[2018-08-13] MEDS: ENALAPRILAT IVPB ×3 (02:13→09:25)
[2018-08-13] MEDS: DEXTROSE 5% IVPB ×3 (02:13→09:25)
[2018-08-13] MEDS: hydrALAzine 20 MG INJ IV ×3 (03:01→18:37)
[2018-08-13 05:42] LABS: ADD MAN DIFF? NO
[2018-08-13 05:47] LABS: ABNORMAL IP MESSAGE 1; BASOPHIL # 0.1 10^3/ul (0.0-0.1); EOSINOPHILS # 0.3 10^3/ul (0.0-0.5); EOSINOPHILS % 3.9 % (0.0-7.0); HEMATOCRIT 30.9 % (42.0-52.0); HEMOGLOBIN 9.6 g/dl (14.0-18.0); LYMPHOCYTES # 0.8 10^3/ul (0.8-2.9); LYMPHOCYTES % 10.8 % (15.0-51.0); MEAN CORPUSCULAR HGB CONC 31.1 g/dl (32.0-37.0); MEAN CORPUSCULAR VOLUME 90.1 fl (82.0-101.0); MEAN PLATELET VOLUME 13.6 fl (7.4-10.4); MONOCYTE # 0.5 10^3/ul (0.3-0.9); MONOCYTES % 7.5 % (0.0-11.0); NEUTROPHIL # 5.3 10^3/ul (1.6-7.5); NEUTROPHILS % 76.5 % (39.0-77.0); PLATELET COUNT 202 10^3/UL (140-415); POSITIVE DIFF @See below; RED BLOOD COUNT 3.43 10^6/ul (4.70-6.10); RED CELL DISTRIBUTION WIDTH 16.7 % (11.5-14.5)
[2018-08-13 05:47] LABS: WHITE BLOOD COUNT 6.9 10^3/ul (4.8-10.8)
[2018-08-13 06:22] LABS: ALANINE AMINOTRANSFERASE 28 IU/L (13-69); ALBUMIN 3.6 g/dl (3.3-4.9); ALBUMIN/GLOBULIN RATIO 1.02; ALKALINE PHOSPHATASE 114 IU/L (42-121); ANION GAP 11 (5-13); ASPARTATE AMINO TRANSFERASE 17 IU/L (15-46); BILIRUBIN,INDIRECT 0.5 mg/dl (0-1.1); BILIRUBIN,TOTAL 0.5 mg/dl (0.2-1.3); BLOOD UREA NITROGEN 23 mg/dl (7-20); CARBON DIOXIDE 24 mmol/L (21-31); CHLORIDE 110 mmol/L (97-110); CREATININE 0.63 mg/dl (0.61-1.24); GLUCOSE 111 mg/dl (70-220); POTASSIUM 3.7 mmol/L (3.5-5.1); SODIUM 145 mmol/L (135-144); TOTAL PROTEIN 7.1 g/dl (6.1-8.1)
[2018-08-13 08:22] LABS: HEMOGLOBIN A1C 5.2 % (0-5.9)
[2018-08-13] MEDS: FAMOTIDINE 20 MG INJ IV ×2 (09:26→21:19)
[2018-08-13] MEDS ORDERED: NON-FORMULARY/PATIENT OWN MED (Clonidine Patch 1 PATCH.WK) TD (12:00)
[2018-08-13] MEDS ORDERED: EPOETIN ALFA 20000 UNIT IJ (12:00)
[2018-08-13] MEDS ORDERED: NON-FORMULARY/PATIENT OWN MED (Hydrocodone/Acetaminophen (Norco 5-325 Tablet) 1 EACH) GTB (12:00)
[2018-08-13] MEDS ORDERED: hydrALAzine 20 MG INJ IV (12:30)
[2018-08-13 12:43] LABS: IRON 55 ug/dl (35-150)
[2018-08-13 12:44] LABS: CREATINE KINASE 23 IU/L (23-200)
[2018-08-13 12:52] LABS: % IRON SATURATION 24 % SAT (22-52); TOTAL IRON BINDING CAPACITY 231 ug/dl (241-421)
[2018-08-13 12:57] LABS: CK INDEX 3.5; TROPONIN-I < 0.012 ng/ml (0.000-0.120)
[2018-08-13] MEDS: CLONIDINE 0.2 MG/24 HR PATCH TRANSDERM (13:36)
[2018-08-13] MEDS: BENAZEPRIL 40 MG TAB GTB ×2 (13:37→21:12)
[2018-08-13] MEDS: HYDROCODONE/APAP (5/325) TAB GTB (13:37)
[2018-08-13] MEDS: PEG/ELECTROLYTES 4L BTL PO (16:14)
[2018-08-13 17:08] LABS: THYROID STIMULATING HORMONE 0.235 MIU/L (0.465-4.680)
[2018-08-13] MEDS: EPOETIN 10000 UNITS/ML (NON ESRD/NON ONCOLOGY) SC (18:36)
[2018-08-13 18:38] LABS: CREATINE KINASE 28 IU/L (23-200)
[2018-08-13 18:51] LABS: CK-MB 0.85 ng/ml (0.0-2.4); TROPONIN-I < 0.012 ng/ml (0.000-0.120)
[2018-08-13] MEDS ORDERED: FERROUS SULFATE 220 MG/5 ML ML GTB (21:00)
[2018-08-13] MEDS ORDERED: MYCOPHENOLATE 250 MG CAP PO (21:00)
[2018-08-13] MEDS ORDERED: MYCOPHENOLATE MOFETIL 200 MG/ML GTB (21:00)
[2018-08-13] MEDS ORDERED: TACROLIMUS 1 MG CAP GTB (21:00)
[2018-08-13] MEDS: SENNA TAB GTB (21:11)
[2018-08-13] MEDS: FERROUS SULFATE 60 MG/ML 5ML CUP GTB (21:11)
[2018-08-13] MEDS: MAGNESIUM OXIDE 400 MG TAB GTB (21:11)
[2018-08-13] MEDS: LEVETIRACETAM (100 MG/ML PO SYG) GTB (21:13)
[2018-08-13] MEDS: SOD PHOS MONO/DIBAS 250 MG TAB PEG (21:13)
[2018-08-13] MEDS: TACROLIMUS 1 MG/ML GTB (21:20)
[2018-08-13] MEDS: MYCOPHENOLATE MOFETIL GTB (21:20)
[2018-08-14 01:16] LABS: CREATINE KINASE 24 IU/L (23-200)
[2018-08-14 01:28] LABS: CK INDEX 4.7; CK-MB 1.12 ng/ml (0.0-2.4); TROPONIN-I 0.022 ng/ml (0.000-0.120)
[2018-08-14 01:56] LABS: AADO2 Arterial 155.9 mmHg (7.0-24.0); Allen Test ACCEPTAB; Arterial Base Excess 2.4 mmol/L (-3.0-3); Arterial Blood Gas Oxygen Sat 96.1 mmHG (95.0-100.0); Arterial COHb 0.2 % (0.0-3.0); Arterial Fraction of Oxyhgb 95.7 % (93.0-99.0); Arterial MetHb 0.2 % (0.0-1.5); Arterial Total Hemglobin 10.3 g/dl (12.0-18.0); Arterial pCO2 41.7 mmhg (35-45); MODE VENT - AC; Site Left Radial
[2018-08-14] MEDS: LANSOPRAZOLE 30 MG CAP GTB (05:22)
[2018-08-14] MEDS: hydrALAzine 20 MG INJ IV ×2 (05:22→12:21)
[2018-08-14 06:18] LABS: WHITE BLOOD COUNT 7.6 10^3/ul (4.8-10.8)
[2018-08-14 06:18] LABS: ABNORMAL IP MESSAGE 1; ADD MAN DIFF? NO; BASOPHIL # 0.1 10^3/ul (0.0-0.1); BASOPHILS % 0.9 % (0.0-2.0); EOSINOPHILS # 0.3 10^3/ul (0.0-0.5); EOSINOPHILS % 3.4 % (0.0-7.0); HEMATOCRIT 29.9 % (42.0-52.0); HEMOGLOBIN 9.1 g/dl (14.0-18.0); LYMPHOCYTES # 0.7 10^3/ul (0.8-2.9); LYMPHOCYTES % 8.8 % (15.0-51.0); MEAN CORPUSCULAR HEMOGLOBIN 27.5 pg (29.0-33.0); MEAN CORPUSCULAR HGB CONC 30.4 g/dl (32.0-37.0); MEAN CORPUSCULAR VOLUME 90.3 fl (82.0-101.0); MEAN PLATELET VOLUME 13.5 fl (7.4-10.4); MONOCYTE # 0.5 10^3/ul (0.3-0.9); NEUTROPHIL # 6.2 10^3/ul (1.6-7.5); NEUTROPHILS % 80.5 % (39.0-77.0); PLATELET COUNT 189 10^3/UL (140-415); POSITIVE DIFF @See below; RED BLOOD COUNT 3.31 10^6/ul (4.70-6.10); RED CELL DISTRIBUTION WIDTH 16.6 % (11.5-14.5)
[2018-08-14 07:01] LABS: ANION GAP 10 (5-13); BLOOD UREA NITROGEN 24 mg/dl (7-20); CALCIUM 10.1 mg/dl (8.4-10.2); CARBON DIOXIDE 25 mmol/L (21-31); CHLORIDE 111 mmol/L (97-110); CREATININE 0.72 mg/dl (0.61-1.24); GLUCOSE 106 mg/dl (70-220); POTASSIUM 3.5 mmol/L (3.5-5.1); SODIUM 146 mmol/L (135-144)
[2018-08-14] MEDS ORDERED: NON-FORMULARY/PATIENT OWN MED (Omeprazole* 40 MG) GTB (09:00)
[2018-08-14] MEDS: FAMOTIDINE 20 MG INJ IV ×2 (09:06→20:36)
[2018-08-14] MEDS: MULTIVIT/CA CARB/B CMPLX/FA TAB GTB (09:06)
[2018-08-14] MEDS: MAGNESIUM OXIDE 400 MG TAB GTB ×2 (09:07→20:35)
[2018-08-14] MEDS: BENAZEPRIL 40 MG TAB GTB ×2 (09:08→20:36)
[2018-08-14] MEDS: FERROUS SULFATE 60 MG/ML 5ML CUP GTB ×2 (09:09→20:23)
[2018-08-14] MEDS: BISACODYL 10 MG SUPP PR (09:09)
[2018-08-14] MEDS: SENNA TAB GTB ×2 (09:09→20:35)
[2018-08-14] MEDS: predniSONE 2.5 MG TAB GTB (09:10)
[2018-08-14] MEDS: TACROLIMUS 1 MG/ML GTB ×2 (09:10→20:22)
[2018-08-14] MEDS: LEVETIRACETAM (100 MG/ML PO SYG) GTB ×2 (09:11→20:22)
[2018-08-14] MEDS: SOD PHOS MONO/DIBAS 250 MG TAB PEG ×2 (09:14→20:35)
[2018-08-14] MEDS: MYCOPHENOLATE MOFETIL GTB ×2 (09:15→20:21)
[2018-08-14] MEDS: AMLODIPINE 5 MG TAB PO ×2 (10:09→20:35)
[2018-08-14] MEDS: MINOXIDIL 10 MG TAB GTB ×2 (16:45→20:35)
[2018-08-14] MEDS: HYDROCODONE/APAP (5/325) TAB GTB (16:45)
[2018-08-15] MEDS: LANSOPRAZOLE 30 MG CAP GTB (05:36)
[2018-08-15 07:11] LABS: POTASSIUM 2.6 mmol/L (3.5-5.1)
[2018-08-15] MEDS: POTASSIUM CHLORIDE (SR) 10 MEQ TAB PO (08:17)
[2018-08-15] MEDS: POTASSIUM CHLORIDE 100 ML IVPB ×2 (08:25→10:42)
[2018-08-15] MEDS: BISACODYL 10 MG SUPP PR (09:00)
[2018-08-15] MEDS: FERROUS SULFATE 60 MG/ML 5ML CUP GTB ×2 (10:04→20:20)
[2018-08-15] MEDS: BENAZEPRIL 40 MG TAB GTB ×2 (10:05→20:22)
[2018-08-15] MEDS: MULTIVIT/CA CARB/B CMPLX/FA TAB GTB (10:05)
[2018-08-15] MEDS: SOD PHOS MONO/DIBAS 250 MG TAB PEG ×2 (10:06→20:22)
[2018-08-15] MEDS: AMLODIPINE 5 MG TAB PO ×2 (10:06→20:23)
[2018-08-15] MEDS: predniSONE 2.5 MG TAB GTB (10:06)
[2018-08-15] MEDS: SENNA TAB GTB ×2 (10:07→20:24)
[2018-08-15] MEDS: MAGNESIUM OXIDE 400 MG TAB GTB ×2 (10:07→20:22)
[2018-08-15] MEDS: TACROLIMUS 1 MG/ML GTB ×2 (11:24→20:21)
[2018-08-15] MEDS: LEVETIRACETAM (100 MG/ML PO SYG) GTB ×2 (11:24→20:21)
[2018-08-15] MEDS: MYCOPHENOLATE MOFETIL GTB ×2 (11:24→20:21)
[2018-08-15] MEDS: FAMOTIDINE 20 MG INJ IV ×2 (11:34→20:21)
[2018-08-15] MEDS: MINOXIDIL 10 MG TAB GTB ×3 (11:37→20:23)
[2018-08-15] MEDS: DEXTROSE 5%-0.9% NACL 1,000 ML IV (14:30)
[2018-08-16 05:45] LABS: ADD MAN DIFF? NO
[2018-08-16 05:54] LABS: ABNORMAL IP MESSAGE 1; BASOPHIL # 0.1 10^3/ul (0.0-0.1); BASOPHILS % 0.8 % (0.0-2.0); EOSINOPHILS # 0.2 10^3/ul (0.0-0.5); EOSINOPHILS % 2.8 % (0.0-7.0); HEMATOCRIT 30.3 % (42.0-52.0); HEMOGLOBIN 9.3 g/dl (14.0-18.0); LYMPHOCYTES # 0.8 10^3/ul (0.8-2.9); LYMPHOCYTES % 12.9 % (15.0-51.0); MEAN CORPUSCULAR HEMOGLOBIN 27.6 pg (29.0-33.0); MEAN CORPUSCULAR HGB CONC 30.7 g/dl (32.0-37.0); MEAN CORPUSCULAR VOLUME 89.9 fl (82.0-101.0); MEAN PLATELET VOLUME 13.4 fl (7.4-10.4); MONOCYTE # 0.6 10^3/ul (0.3-0.9); MONOCYTES % 8.7 % (0.0-11.0); NEUTROPHIL # 4.8 10^3/ul (1.6-7.5); NEUTROPHILS % 74.3 % (39.0-77.0); PLATELET COUNT 198 10^3/UL (140-415); POSITIVE DIFF @See below; RED BLOOD COUNT 3.37 10^6/ul (4.70-6.10); RED CELL DISTRIBUTION WIDTH 16.2 % (11.5-14.5)
[2018-08-16 05:54] LABS: WHITE BLOOD COUNT 6.4 10^3/ul (4.8-10.8)
[2018-08-16] MEDS: LANSOPRAZOLE 30 MG CAP GTB (06:00)
[2018-08-16 06:12] LABS: ANION GAP 10 (5-13); BLOOD UREA NITROGEN 21 mg/dl (7-20); CALCIUM 10.2 mg/dl (8.4-10.2); CARBON DIOXIDE 26 mmol/L (21-31); CHLORIDE 113 mmol/L (97-110); CREATININE 0.74 mg/dl (0.61-1.24); GLUCOSE 119 mg/dl (70-220); MAGNESIUM 2.3 mg/dl (1.7-2.5); PHOSPHORUS 2.8 mg/dl (2.5-4.9); SODIUM 149 mmol/L (135-144)
[2018-08-16] MEDS: hydrALAzine 20 MG INJ IV ×3 (06:23→20:49)
[2018-08-16 06:26] LABS: POTASSIUM 2.9 mmol/L (3.5-5.1)
[2018-08-16] MEDS: LEVETIRACETAM (100 MG/ML PO SYG) GTB ×2 (09:00→20:50)
[2018-08-16] MEDS: SOD PHOS MONO/DIBAS 250 MG TAB PEG ×2 (09:00→20:51)
[2018-08-16] MEDS: BISACODYL 10 MG SUPP PR (09:00)
[2018-08-16] MEDS: AMLODIPINE 5 MG TAB PO ×2 (09:00→20:48)
[2018-08-16] MEDS: BENAZEPRIL 40 MG TAB GTB ×2 (09:00→20:47)
[2018-08-16] MEDS: MULTIVIT/CA CARB/B CMPLX/FA TAB GTB (09:00)
[2018-08-16] MEDS: MINOXIDIL 10 MG TAB GTB ×3 (09:00→20:47)
[2018-08-16] MEDS: SENNA TAB GTB ×2 (09:00→20:49)
[2018-08-16] MEDS: MYCOPHENOLATE MOFETIL GTB ×2 (09:00→22:53)
[2018-08-16] MEDS: FERROUS SULFATE 60 MG/ML 5ML CUP GTB ×2 (09:00→20:48)
[2018-08-16] MEDS: MAGNESIUM OXIDE 400 MG TAB GTB ×2 (09:00→20:47)
[2018-08-16] MEDS: predniSONE 2.5 MG TAB GTB (09:00)
[2018-08-16] MEDS: TACROLIMUS 1 MG/ML GTB ×2 (09:00→22:53)
[2018-08-16] MEDS: FAMOTIDINE 20 MG INJ IV ×2 (09:00→20:48)
[2018-08-16] MEDS: POTASSIUM CHLORIDE 100 ML IVPB ×4 (11:47→22:54)
[2018-08-16] MEDS: D5W + KCL 20 MEQ 1,000 ML IV ×2 (11:47→23:20)
[2018-08-16] MEDS: DEXTROSE 5% IVPB (15:58)
[2018-08-16] MEDS: ENALAPRILAT IVPB (15:58)
[2018-08-16 16:56] LABS: POTASSIUM 3.1 mmol/L (3.5-5.1)
[2018-08-17] MEDS: LANSOPRAZOLE 30 MG CAP GTB (05:41)
[2018-08-17 06:06] LABS: ADD MAN DIFF? NO
[2018-08-17 06:16] LABS: ABNORMAL IP MESSAGE 1; BASOPHIL # 0.1 10^3/ul (0.0-0.1); BASOPHILS % 1.4 % (0.0-2.0); EOSINOPHILS # 0.3 10^3/ul (0.0-0.5); EOSINOPHILS % 5.6 % (0.0-7.0); HEMATOCRIT 29.8 % (42.0-52.0); LYMPHOCYTES # 0.7 10^3/ul (0.8-2.9); LYMPHOCYTES % 13.9 % (15.0-51.0); MEAN CORPUSCULAR HEMOGLOBIN 27.5 pg (29.0-33.0); MEAN CORPUSCULAR HGB CONC 30.2 g/dl (32.0-37.0); MEAN CORPUSCULAR VOLUME 91.1 fl (82.0-101.0); MEAN PLATELET VOLUME 13.4 fl (7.4-10.4); MONOCYTE # 0.5 10^3/ul (0.3-0.9); MONOCYTES % 10.9 % (0.0-11.0); NEUTROPHIL # 3.4 10^3/ul (1.6-7.5); PLATELET COUNT 188 10^3/UL (140-415); POSITIVE DIFF @See below; RED BLOOD COUNT 3.27 10^6/ul (4.70-6.10); RED CELL DISTRIBUTION WIDTH 16.2 % (11.5-14.5)
[2018-08-17 06:48] LABS: ANION GAP 8 (5-13); BLOOD UREA NITROGEN 19 mg/dl (7-20); CALCIUM 9.9 mg/dl (8.4-10.2); CARBON DIOXIDE 25 mmol/L (21-31); CHLORIDE 113 mmol/L (97-110); CREATININE 0.72 mg/dl (0.61-1.24); GLUCOSE 138 mg/dl (70-220); MAGNESIUM 2.2 mg/dl (1.7-2.5); PHOSPHORUS 2.3 mg/dl (2.5-4.9); POTASSIUM 3.4 mmol/L (3.5-5.1); SODIUM 146 mmol/L (135-144)
[2018-08-17] MEDS: BISACODYL 10 MG SUPP PR (09:00)
[2018-08-17] MEDS: SENNA TAB GTB ×2 (09:00→22:01)
[2018-08-17] MEDS: LEVETIRACETAM (100 MG/ML PO SYG) GTB ×2 (09:47→22:03)
[2018-08-17] MEDS: FERROUS SULFATE 60 MG/ML 5ML CUP GTB ×2 (09:47→22:02)
[2018-08-17] MEDS: NEUTRA-PHOS 250 MG PACKET PO ×2 (09:47→22:00)
[2018-08-17] MEDS: POTASSIUM CHLORIDE 20 MEQ POWDER FOR ORAL SOLN GTB (09:48)
[2018-08-17] MEDS: SOD PHOS MONO/DIBAS 250 MG TAB PEG ×2 (09:48→22:15)
[2018-08-17] MEDS: MULTIVIT/CA CARB/B CMPLX/FA TAB GTB (09:49)
[2018-08-17] MEDS: MAGNESIUM OXIDE 400 MG TAB GTB ×2 (09:49→22:02)
[2018-08-17] MEDS: predniSONE 2.5 MG TAB GTB (09:50)
[2018-08-17] MEDS: BENAZEPRIL 40 MG TAB GTB ×2 (09:57→22:04)
[2018-08-17] MEDS: AMLODIPINE 5 MG TAB PO ×2 (09:57→22:00)
[2018-08-17] MEDS: MINOXIDIL 10 MG TAB GTB ×3 (09:57→22:01)
[2018-08-17] MEDS: TACROLIMUS 1 MG/ML GTB ×2 (10:20→22:11)
[2018-08-17] MEDS: MYCOPHENOLATE MOFETIL GTB ×2 (10:20→22:10)
[2018-08-17] MEDS: FAMOTIDINE 20 MG INJ IV ×2 (10:21→22:11)
[2018-08-17] MEDS: ACETAMINOPHEN 650MG/20.3ML CUP GTB (22:03)
[2018-08-18 05:32] LABS: ADD MAN DIFF? NO
[2018-08-18 05:36] LABS: ABNORMAL IP MESSAGE 1; BASOPHIL # 0.1 10^3/ul (0.0-0.1); EOSINOPHILS # 0.3 10^3/ul (0.0-0.5); EOSINOPHILS % 6.4 % (0.0-7.0); HEMATOCRIT 28.3 % (42.0-52.0); HEMOGLOBIN 8.5 g/dl (14.0-18.0); LYMPHOCYTES # 0.9 10^3/ul (0.8-2.9); LYMPHOCYTES % 17.1 % (15.0-51.0); MEAN CORPUSCULAR HEMOGLOBIN 27.3 pg (29.0-33.0); MEAN PLATELET VOLUME 13.3 fl (7.4-10.4); MONOCYTE # 0.6 10^3/ul (0.3-0.9); MONOCYTES % 10.9 % (0.0-11.0); NEUTROPHIL # 3.3 10^3/ul (1.6-7.5); NEUTROPHILS % 64.2 % (39.0-77.0); PLATELET COUNT 182 10^3/UL (140-415); POSITIVE DIFF @See below; RED BLOOD COUNT 3.11 10^6/ul (4.70-6.10)
[2018-08-18 05:36] LABS: WHITE BLOOD COUNT 5.2 10^3/ul (4.8-10.8)
[2018-08-18] MEDS: LANSOPRAZOLE 30 MG CAP GTB (05:51)
[2018-08-18 06:06] LABS: ANION GAP 9 (5-13); BLOOD UREA NITROGEN 24 mg/dl (7-20); CALCIUM 9.7 mg/dl (8.4-10.2); CARBON DIOXIDE 23 mmol/L (21-31); CHLORIDE 114 mmol/L (97-110); CREATININE 0.85 mg/dl (0.61-1.24); GLUCOSE 112 mg/dl (70-220); MAGNESIUM 2.3 mg/dl (1.7-2.5); POTASSIUM 3.8 mmol/L (3.5-5.1); SODIUM 146 mmol/L (135-144)
[2018-08-18] MEDS: BISACODYL 10 MG SUPP PR (09:00)
[2018-08-18] MEDS: MULTIVIT/CA CARB/B CMPLX/FA TAB GTB (09:31)
[2018-08-18] MEDS: MYCOPHENOLATE MOFETIL GTB ×2 (09:31→21:29)
[2018-08-18] MEDS: LEVETIRACETAM (100 MG/ML PO SYG) GTB ×2 (09:31→21:30)
[2018-08-18] MEDS: TACROLIMUS 1 MG/ML GTB ×2 (09:31→21:30)
[2018-08-18] MEDS: BENAZEPRIL 40 MG TAB GTB ×2 (09:32→21:00)
[2018-08-18] MEDS: SENNA TAB GTB ×2 (09:32→21:31)
[2018-08-18] MEDS: NEUTRA-PHOS 250 MG PACKET PO ×2 (09:32→21:25)
[2018-08-18] MEDS: SOD PHOS MONO/DIBAS 250 MG TAB PEG ×2 (09:32→21:28)
[2018-08-18] MEDS: MAGNESIUM OXIDE 400 MG TAB GTB ×2 (09:33→21:27)
[2018-08-18] MEDS: MINOXIDIL 10 MG TAB GTB ×3 (09:33→21:27)
[2018-08-18] MEDS: FAMOTIDINE 20 MG INJ IV ×2 (09:34→21:25)
[2018-08-18] MEDS: AMLODIPINE 5 MG TAB PO ×2 (09:34→21:00)
[2018-08-18] MEDS: FERROUS SULFATE 60 MG/ML 5ML CUP GTB ×2 (09:35→21:25)
[2018-08-18] MEDS: predniSONE 2.5 MG TAB GTB (09:44)
[2018-08-18] MEDS: HYDROCODONE/APAP (5/325) TAB GTB (15:50)
[2018-08-19] MEDS: LANSOPRAZOLE 30 MG CAP GTB (05:20)
[2018-08-19 06:15] LABS: ANION GAP 8 (5-13); BLOOD UREA NITROGEN 25 mg/dl (7-20); CALCIUM 9.9 mg/dl (8.4-10.2); CARBON DIOXIDE 26 mmol/L (21-31); CHLORIDE 110 mmol/L (97-110); CREATININE 0.86 mg/dl (0.61-1.24); GLUCOSE 118 mg/dl (70-220); MAGNESIUM 2.1 mg/dl (1.7-2.5); PHOSPHORUS 3.4 mg/dl (2.5-4.9); POTASSIUM 3.9 mmol/L (3.5-5.1); SODIUM 144 mmol/L (135-144)
[2018-08-19] MEDS: MULTIVIT/CA CARB/B CMPLX/FA TAB GTB (08:48)
[2018-08-19] MEDS: predniSONE 2.5 MG TAB GTB (08:48)
[2018-08-19] MEDS: NEUTRA-PHOS 250 MG PACKET PO ×2 (08:48→20:53)
[2018-08-19] MEDS: SOD PHOS MONO/DIBAS 250 MG TAB PEG ×2 (08:48→20:53)
[2018-08-19] MEDS: FERROUS SULFATE 60 MG/ML 5ML CUP GTB ×2 (08:48→20:52)
[2018-08-19] MEDS: SENNA TAB GTB ×2 (08:48→20:53)
[2018-08-19] MEDS: AMLODIPINE 5 MG TAB PO ×2 (08:49→20:54)
[2018-08-19] MEDS: MAGNESIUM OXIDE 400 MG TAB GTB ×2 (08:49→20:53)
[2018-08-19] MEDS: BISACODYL 10 MG SUPP PR (08:50)
[2018-08-19] MEDS: MINOXIDIL 10 MG TAB GTB ×2 (08:50→13:23)
[2018-08-19] MEDS: BENAZEPRIL 40 MG TAB GTB ×2 (08:51→20:54)
[2018-08-19] MEDS: TACROLIMUS 1 MG/ML GTB ×2 (08:58→20:51)
[2018-08-19] MEDS: FAMOTIDINE 20 MG INJ IV ×2 (08:58→20:51)
[2018-08-19] MEDS: MYCOPHENOLATE MOFETIL GTB ×2 (08:59→20:50)
[2018-08-19] MEDS: LEVETIRACETAM (100 MG/ML PO SYG) GTB ×2 (09:00→20:52)
[2018-08-19] MEDS: MINOXIDIL 2.5 MG TAB GTB (16:14)
[2018-08-19] MEDS: morphine LIQ (10 MG/5 ML) CUP GTB (16:15)
[2018-08-20] MEDS: MINOXIDIL 2.5 MG TAB GTB ×4 (00:24→20:13)
[2018-08-20] MEDS: morphine LIQ (10 MG/5 ML) CUP GTB (04:24)
[2018-08-20 06:32] LABS: ANION GAP 8 (5-13); BLOOD UREA NITROGEN 24 mg/dl (7-20); CALCIUM 9.7 mg/dl (8.4-10.2); CARBON DIOXIDE 26 mmol/L (21-31); CHLORIDE 107 mmol/L (97-110); CREATININE 0.87 mg/dl (0.61-1.24); GLUCOSE 115 mg/dl (70-220); MAGNESIUM 2.2 mg/dl (1.7-2.5); PHOSPHORUS 3.5 mg/dl (2.5-4.9); POTASSIUM 3.8 mmol/L (3.5-5.1); SODIUM 141 mmol/L (135-144)
[2018-08-20] MEDS: LANSOPRAZOLE 30 MG CAP GTB (06:45)
[2018-08-20] MEDS: MYCOPHENOLATE MOFETIL GTB ×2 (08:11→20:29)
[2018-08-20] MEDS: TACROLIMUS 1 MG/ML GTB ×2 (08:11→20:28)
[2018-08-20] MEDS: MAGNESIUM OXIDE 400 MG TAB GTB ×2 (08:11→20:29)
[2018-08-20] MEDS: BENAZEPRIL 40 MG TAB GTB ×2 (08:11→20:11)
[2018-08-20] MEDS: SOD PHOS MONO/DIBAS 250 MG TAB PEG ×2 (08:12→20:10)
[2018-08-20] MEDS: NEUTRA-PHOS 250 MG PACKET PO ×2 (08:12→20:10)
[2018-08-20] MEDS: predniSONE 2.5 MG TAB GTB (08:13)
[2018-08-20] MEDS: MULTIVIT/CA CARB/B CMPLX/FA TAB GTB (08:13)
[2018-08-20] MEDS: FERROUS SULFATE 60 MG/ML 5ML CUP GTB ×2 (08:13→20:10)
[2018-08-20] MEDS: AMLODIPINE 5 MG TAB PO ×2 (08:13→20:14)
[2018-08-20] MEDS: LEVETIRACETAM (100 MG/ML PO SYG) GTB ×2 (08:14→20:29)
[2018-08-20] MEDS: BISACODYL 10 MG SUPP PR (08:14)
[2018-08-20] MEDS: FAMOTIDINE 20 MG INJ IV ×2 (08:19→20:14)
[2018-08-20] MEDS: SENNA TAB GTB ×2 (11:00→20:13)
[2018-08-20] MEDS: CLONIDINE 0.2 MG/24 HR PATCH TRANSDERM (12:03)
[2018-08-20] MEDS: EPOETIN 10000 UNITS/ML (NON ESRD/NON ONCOLOGY) SC (18:23)
[2018-08-21] MEDS: LANSOPRAZOLE 30 MG CAP GTB (05:40)
[2018-08-21 05:59] LABS: ADD MAN DIFF? NO
[2018-08-21 06:04] LABS: BASOPHILS % 0.5 % (0.0-2.0); EOSINOPHILS # 0.3 10^3/ul (0.0-0.5); EOSINOPHILS % 5.1 % (0.0-7.0); HEMATOCRIT 29.2 % (42.0-52.0); HEMOGLOBIN 9.1 g/dl (14.0-18.0); LYMPHOCYTES # 0.6 10^3/ul (0.8-2.9); LYMPHOCYTES % 11.7 % (15.0-51.0); MEAN CORPUSCULAR HEMOGLOBIN 27.9 pg (29.0-33.0); MEAN CORPUSCULAR HGB CONC 31.2 g/dl (32.0-37.0); MEAN CORPUSCULAR VOLUME 89.6 fl (82.0-101.0); MONOCYTE # 0.6 10^3/ul (0.3-0.9); NEUTROPHILS % 72.5 % (39.0-77.0); PLATELET COUNT 193 10^3/UL (140-415); RED BLOOD COUNT 3.26 10^6/ul (4.70-6.10); RED CELL DISTRIBUTION WIDTH 15.7 % (11.5-14.5)
[2018-08-21 06:04] LABS: WHITE BLOOD COUNT 5.5 10^3/ul (4.8-10.8)
[2018-08-21 06:30] LABS: ANION GAP 7 (5-13); BLOOD UREA NITROGEN 26 mg/dl (7-20); CALCIUM 9.3 mg/dl (8.4-10.2); CARBON DIOXIDE 25 mmol/L (21-31); CHLORIDE 108 mmol/L (97-110); CREATININE 1.07 mg/dl (0.61-1.24); GLUCOSE 126 mg/dl (70-220); POTASSIUM 4.2 mmol/L (3.5-5.1); SODIUM 140 mmol/L (135-144)
[2018-08-21] MEDS: MAGNESIUM OXIDE 400 MG TAB GTB ×2 (08:36→21:59)
[2018-08-21] MEDS: NEUTRA-PHOS 250 MG PACKET PO ×2 (08:36→21:59)
[2018-08-21] MEDS: BENAZEPRIL 40 MG TAB GTB ×2 (08:36→21:59)
[2018-08-21] MEDS: MULTIVIT/CA CARB/B CMPLX/FA TAB GTB (08:36)
[2018-08-21] MEDS: FAMOTIDINE 20 MG INJ IV (08:37)
[2018-08-21] MEDS: MINOXIDIL 2.5 MG TAB GTB ×3 (08:37→22:02)
[2018-08-21] MEDS: AMLODIPINE 5 MG TAB PO ×2 (08:37→22:00)
[2018-08-21] MEDS: predniSONE 2.5 MG TAB GTB (08:37)
[2018-08-21] MEDS: BISACODYL 10 MG SUPP PR (08:37)
[2018-08-21] MEDS: LEVETIRACETAM (100 MG/ML PO SYG) GTB ×2 (08:37→22:02)
[2018-08-21] MEDS: FERROUS SULFATE 60 MG/ML 5ML CUP GTB ×2 (08:37→22:01)
[2018-08-21] MEDS: SENNA TAB GTB ×2 (08:37→21:59)
[2018-08-21] MEDS: MYCOPHENOLATE MOFETIL GTB ×2 (08:44→21:59)
[2018-08-21] MEDS: SOD PHOS MONO/DIBAS 250 MG TAB PEG ×2 (08:45→21:58)
[2018-08-21] MEDS: TACROLIMUS 1 MG/ML GTB ×2 (08:45→21:59)
[2018-08-21] MEDS: FUROSEMIDE 20 MG INJ IV (13:11)
[2018-08-21] MEDS: FAMOTIDINE 20 MG TAB GTB (21:59)
[2018-08-22] MEDS: LANSOPRAZOLE 30 MG CAP GTB (06:27)
[2018-08-22] MEDS: FAMOTIDINE 20 MG TAB GTB ×2 (08:44→21:33)
[2018-08-22] MEDS: MAGNESIUM OXIDE 400 MG TAB GTB ×2 (08:44→21:33)
[2018-08-22] MEDS: AMLODIPINE 5 MG TAB PO ×2 (08:44→21:33)
[2018-08-22] MEDS: BISACODYL 10 MG SUPP PR (08:44)
[2018-08-22] MEDS: FERROUS SULFATE 60 MG/ML 5ML CUP GTB ×2 (08:44→21:32)
[2018-08-22] MEDS: NEUTRA-PHOS 250 MG PACKET PO ×2 (08:44→21:33)
[2018-08-22] MEDS: BENAZEPRIL 40 MG TAB GTB ×2 (08:44→21:32)
[2018-08-22] MEDS: MULTIVIT/CA CARB/B CMPLX/FA TAB GTB (08:44)
[2018-08-22] MEDS: SENNA TAB GTB ×2 (08:44→21:33)
[2018-08-22] MEDS: SOD PHOS MONO/DIBAS 250 MG TAB PEG ×2 (08:45→21:33)
[2018-08-22] MEDS: MYCOPHENOLATE MOFETIL GTB ×2 (08:48→21:31)
[2018-08-22] MEDS: TACROLIMUS 1 MG/ML GTB ×2 (08:48→21:33)
[2018-08-22] MEDS: predniSONE 2.5 MG TAB GTB (08:49)
[2018-08-22] MEDS: MINOXIDIL 2.5 MG TAB GTB ×3 (08:50→21:32)
[2018-08-22] MEDS: LEVETIRACETAM (100 MG/ML PO SYG) GTB ×2 (09:14→21:32)
[2018-08-22] MEDS: HYDROCODONE/APAP (5/325) TAB GTB ×2 (13:11→21:34)
[2018-08-23 05:33] LABS: ADD MAN DIFF? NO
[2018-08-23 05:34] LABS: WHITE BLOOD COUNT 4.5 10^3/ul (4.8-10.8)
[2018-08-23 05:34] LABS: BASOPHILS % 0.7 % (0.0-2.0); EOSINOPHILS # 0.3 10^3/ul (0.0-0.5); EOSINOPHILS % 7.1 % (0.0-7.0); HEMATOCRIT 26.2 % (42.0-52.0); HEMOGLOBIN 8.2 g/dl (14.0-18.0); LYMPHOCYTES # 0.8 10^3/ul (0.8-2.9); LYMPHOCYTES % 17.3 % (15.0-51.0); MEAN CORPUSCULAR HEMOGLOBIN 27.6 pg (29.0-33.0); MEAN CORPUSCULAR HGB CONC 31.3 g/dl (32.0-37.0); MEAN CORPUSCULAR VOLUME 88.2 fl (82.0-101.0); MEAN PLATELET VOLUME 12.8 fl (7.4-10.4); MONOCYTE # 0.5 10^3/ul (0.3-0.9); MONOCYTES % 11.1 % (0.0-11.0); NEUTROPHIL # 2.9 10^3/ul (1.6-7.5); NEUTROPHILS % 63.6 % (39.0-77.0); PLATELET COUNT 182 10^3/UL (140-415); RED BLOOD COUNT 2.97 10^6/ul (4.70-6.10); RED CELL DISTRIBUTION WIDTH 15.2 % (11.5-14.5)
[2018-08-23] MEDS: LANSOPRAZOLE 30 MG CAP GTB (05:35)
[2018-08-23 05:56] LABS: ANION GAP 6 (5-13); BLOOD UREA NITROGEN 25 mg/dl (7-20); CALCIUM 9.1 mg/dl (8.4-10.2); CARBON DIOXIDE 26 mmol/L (21-31); CHLORIDE 108 mmol/L (97-110); CREATININE 1.05 mg/dl (0.61-1.24); GLUCOSE 110 mg/dl (70-220); POTASSIUM 3.9 mmol/L (3.5-5.1); SODIUM 140 mmol/L (135-144)
[2018-08-23] MEDS: BISACODYL 10 MG SUPP PR (09:00)
[2018-08-23] MEDS: FAMOTIDINE 20 MG TAB GTB (09:52)
[2018-08-23] MEDS: predniSONE 2.5 MG TAB GTB (09:52)
[2018-08-23] MEDS: SENNA TAB GTB (09:52)
[2018-08-23] MEDS: SOD PHOS MONO/DIBAS 250 MG TAB PEG (09:52)
[2018-08-23] MEDS: MULTIVIT/CA CARB/B CMPLX/FA TAB GTB (09:53)
[2018-08-23] MEDS: TACROLIMUS 1 MG/ML GTB (09:53)
[2018-08-23] MEDS: AMLODIPINE 5 MG TAB PO (09:53)
[2018-08-23] MEDS: BENAZEPRIL 40 MG TAB GTB (09:53)
[2018-08-23] MEDS: MAGNESIUM OXIDE 400 MG TAB GTB (09:53)
[2018-08-23] MEDS: MINOXIDIL 2.5 MG TAB GTB ×2 (09:54→15:54)
[2018-08-23] MEDS: NEUTRA-PHOS 250 MG PACKET PO (09:54)
[2018-08-23] MEDS: FERROUS SULFATE 60 MG/ML 5ML CUP GTB (09:55)
[2018-08-23] MEDS: LEVETIRACETAM (100 MG/ML PO SYG) GTB (09:55)
[2018-08-23] MEDS: MYCOPHENOLATE MOFETIL GTB (15:52)
== END 2018-08-23 20:50 | DRG 377 ==
LOC: 6WM 21:19 → E/R 20:28
PROC: 0DJ08ZZ Inspection of Upper Intestinal Tract, Via Natural or Artificial Opening Endoscopic (ICD-10-PCS; principal; 2018-08-16 17:30)
PROC: 0DJD8ZZ Inspection of Lower Intestinal Tract, Via Natural or Artificial Opening Endoscopic (ICD-10-PCS; 2018-08-16 17:30)
PROC: 30233N1 Transfusion of Nonautologous Red Blood Cells into Peripheral Vein, Percutaneous Approach (ICD-10-PCS; 2018-08-16 17:30)
PROC: 5A1955Z Respiratory Ventilation, Greater than 96 Consecutive Hours (ICD-10-PCS; 2018-08-16 17:30)
DX: K92.2 Gastrointestinal hemorrhage, unspecified (principal); G92 Toxic encephalopathy; I50.43 Acute on chronic combined systolic (congestive) and diastolic (congestive) heart failure; J96.10 Chronic respiratory failure, unspecified whether with hypoxia or hypercapnia; Z99.11 Dependence on respirator [ventilator] status; Z94.0 Kidney transplant status; E87.0 Hyperosmolality and hypernatremia; I16.1 Hypertensive emergency; D62 Acute posthemorrhagic anemia; I13.0 Hypertensive heart and chronic kidney disease with heart failure and stage 1 through stage 4 chronic kidney disease, or unspecified chronic kidney disease; T86.12 Kidney transplant failure; G93.49 Other encephalopathy; G40.909 Epilepsy, unspecified, not intractable, without status epilepticus; E11.22 Type 2 diabetes mellitus with diabetic chronic kidney disease; E87.6 Hypokalemia; N18.9 Chronic kidney disease, unspecified; I25.10 Atherosclerotic heart disease of native coronary artery without angina pectoris; I50.9 Heart failure, unspecified; I69.198 Other sequelae of nontraumatic intracerebral hemorrhage; K21.0 Gastro-esophageal reflux disease with esophagitis; Q27.33 Arteriovenous malformation of digestive system vessel; R13.10 Dysphagia, unspecified; R00.1 Bradycardia, unspecified; Z93.1 Gastrostomy status; Z93.0 Tracheostomy status; I25.2 Old myocardial infarction; Z22.330 Carrier of Group B streptococcus; Z74.01 Bed confinement status; Z79.899 Other long term (current) drug therapy; Z79.52 Long term (current) use of systemic steroids
CPT/HCPCS: 36415; 36430; 36600; 71045; 80048; 80053; 82550; 82553; 82803; 83036; 83540; 83690; 83735; 83880; 84100; 84132; 84443; 84484; 85025; 85610; 85730; 86850; 86900; 86901; 86920; 87070; 89220; 93005; 93306; 94002; 94003; 94799; 99291-25